=== PATIENT | female | born 1985 ===

== ENCOUNTER 2017-12-25 14:12 | Emergency (ER) | payer OTHER ==
[~2017-12-25] VITALS: Ht 157.5 cm; Wt 49.9 kg
[~2017-12-25 14:12] MED LIST: IBUP-1773 PO; Ibuprofen PO; PREN1TAB19 PO
--- OUTSIDE RECORDS SUMMARY | 2017-12-25 14:20 | XMS REPORT ---
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 pylori infection A04.8 Active 189513536 Problem Dyspepsia R10.13 Active 275820095 ALLERGIES No Information ENCOUNTERS Encounter Location Date Diagnosis [facility] [id number] [place] [address] 14369- 9988 Dec, [facility] [id number] [place] [address] 39059- 1028 Dec, Miscarriage O03.9 [facility] WALK IN [facility] [id number] [place] [address] 44706 -8461 Nov, Threatened in first trimester O20.0 ; Missed period N92.6 ; Abdominal pain R10.9 and Miscarriage O03.9 [facility] [id number] [place] [address] 22804- 5253 Aug, Well woman exam Z01.419 ; Screening examination for sexually transmitted disease Z11.3 and Mittelschmerz N94.0 [facility] [id number] [place] [address] 24464- 6676 Sep, Dental examination Z01.20 [place] [id number] [place] [address] 81205- 6039 08 Aug, 2017 General medical exam Z00.00 ; Anxiety F41.9 ; Dyspepsia R10.13 and H. pylori infection A04.8 [facility] [id number] [place] [address] 67099- 9884 Sep, [facility] [id number] [place] [address] 57170- 3666 Sep, General medical exam Z00.00 ; Anxiety F41.9 ; Dyspepsia R10.13 and H. pylori infection A04.8 [place] [id number] [place] [address] 04069- 9471 Aug, [place] [address] 81511- 5053 Aug, Anxiety state, unspecified F41.1 [place] [address] 80896- 9083 Apr, Routine gynecological examination Z01.419 [facility] [address] [id number] June, Dental examination Z01.20 [place] [address] 54822- 6883 Apr, Low grade intrepith lesion cyto smr crvx (LGSIL) R87.612 [place] [address] 33232- 1751 Apr, Well woman exam Z01.419 ; Encounter for screening for malignant neoplasm of cervix Z12.4 ; Routine screening for STI (sexually transmitted infection) Z11.3 ; Patient is a currently breast-feeding mother Z39.1 and Bartholin cyst N75.0 [place] [address] 36521- 8833 Feb, Routine follow-up Z39.2 ; Constipation, unspecified K59.00 and Encounter for counseling regarding contraception Z30.9 [place] [id number] [place] [address] 43945- 9872 Jan, Normal , third trimester Z34.93 ; GBS (group B Streptococcus carrier), +RV culture, currently O99.820 and 38 weeks gestation of Z3A.38 [place] [id number] [place] [address] 04342- 0022 Dec, Normal , third trimester Z34.93 ; GBS (group B Streptococcus carrier), +RV culture, currently O99.820 and 37 weeks gestation of Z3A.37 [place] [address] 44265- 3775 10 Dec, 2014 with 35 completed weeks gestation Z3A.35 ; Normal in third trimester Z34.93 ; Encounter for immunization Z23 and Bartholin cyst N75.0 [place] [address] 14341- 3040 Oct, [address] 05181- 9904 Oct, Screening for diabetes mellitus V77.1 ; Influenza vaccine administered V04.81 ; Screening, iron deficiency anemia V78.0 and , normal subsequent V22.[address] 19179- 8550 Sep, , normal subsequent V22.1 [place] [id number] [place] [address] 19420- 5360 Aug, , normal subsequent V22.1 and Screen for STD ( sexually transmitted disease) V74.5 [place] [id number] [place] [address] 35696- 2003 Jul, test positive V72.42 ; , normal subsequent V22.1 and Screen for STD (sexually transmitted disease) V74.5 [place] [id number] [place] [address] 94263- 9050 Jul, test positive V72.42 [facility] [id number] [place] [address] [id number] 08 Jul, 2014 Dental examination V72.2 [facility] [address] [id number] [id number] June, Dental examination V72.2 [facility] [address] [id number] [place] [address]- 9012 14 May, 2014 [facility] [address] [id number] [address]- 1322 May, [facility] [address] [id number][place] [address]- 3709 24 Dec, 2013 [facility] [address] [id number] [place] [address]- 9543 24 Dec, 2013 [facility] [address] [id number][place] [address]- 4688 Dec, [facility] [address] [id number], [place] [address]- 4405 Dec, [facility] [address] [id number][place] [address]- 7844 2013 [facility] [address] [id number] [address]- 4745 2013 [facility] [address] [id number], [place] [address]- 4141 18 Oct, 2013 [facility] [address] [id number][place] [address]- 8804 18 Oct, 2013 [facility] [place] [facility] [address] [id number], [place] [address]- 9184 17 Oct, 2013 [facility] [place] [facility] [address] [id number][place] [address]- 1669 17 Oct, 2013 [facility] [place] [facility] [address] [id number][place] [address]- 4946 10 Oct, 2013 [facility] [place] [facility] [address] [id number], [place] [address]- 7198 10 Oct, 2013 [facility] [address] [id number] [place] [address]- 9699 09 Oct, 2013 [facility] [place] [facility] [address] [id number] [place] [address]- 3382 05 Oct, 2013 [facility] [place] [facility] [address] [id number] [place] [address]- 8996 Oct, [facility] [place] [facility] [address] [id number] [place] [address]- 6056 Oct, [facility] [place] [facility] [address] [id number] [place] [address]- 5580 Sep, [facility] [place] [facility] [address] [id number] [place] [address]- 3994 Sep, [facility] [place] [facility] [address] [id number] [place] [address]- 6226 Sep, [facility] [place] [facility] [address] [id number] [place] [address]- 3576 Sep, [facility] [place] [facility] [address] [id number] [place] [address]- 5657 Aug, [facility] [place] [facility] [address] [id number] [place] [address]- 7729 Aug, [facility] [place] [facility] [address] [id number] [place] [address]- 2815 Aug, [facility] [place] [facility] [address] [id number] [place] [address]- 6127 Aug, [facility] [place] [facility] [address] [id number] [place] [address]- 6062 Aug, [facility] [place] [facility] [address] [id number] [place] [address]- 3723 Aug, [facility] [place] [facility] [address] [id number] [place] [address]- 0103 Jul, [facility] [place] [facility] [address] [id number] [place] [address]- 6685 Jul, [facility] [place] [facility] [address] [id number] [place] [address]- 2558 Jul, [facility] [place] [facility] [address] [id number] [place] [address]- 2705 Jul, [facility] [place] [facility] [address] [id number] [place] [address]- 1626 Jul, [facility] [place] [facility] [address] [id number] [place] [address]- 7566 Jul, [facility] [place] [facility] [address] [id number] [place] [address]- 7558 Jul, [facility] [place] [facility] [address] [id number] [place] [address]- 8842 Jul, [facility] [place] [facility] [address] [id number] [place] [address]- 6197 June, [facility] [place] [facility] [address] [id number] [place] [address]- 5124 June, [facility] [place] [facility] [address] [id number] [place] [address]- 5297 June, [facility] [place] [facility] [address] [id number] [place] [address]- 0155 June, [facility] [place] [facility] [address] [id number] [place] [address]- 1220 June, [facility] [place] [facility] [address] [id number] [place] [address]- 8146 May, [facility] [place] [facility] [address] [id number] [place] [address]- 7662 May, [facility] [place] [facility] [address] [id number] [place] [address]- 8693 May, [facility] [place] [facility] [address] [id number] [place] [address]- 1700 May, [facility] [place] [facility] [address] [id number] [place] [address]- 7216 May, [facility] [place] [facility] [address] [id number] [place] [address]- 3464 15 May, 2013 [facility] [place] [facility] [address] [id number] [place] [address] May, [facility] [place] [facility] [address] [id number] [place] [address]- 0912 May, [facility] [place] [facility] [address] [id number] [place] [id number] May, [facility] [place] [facility] [address] [id number] [place] [address]- 5793 May, [facility] [place] [facility] [address] [id number] [place] [address]- 8389 May, [facility] [place] [facility] [address] [id number] [place] [address]- 1663 May, [facility] [place] [facility] [address] [id number] [place] [address]- 2615 May, [facility] [place] [facility] [address] [id number] [place] [address]- 9805 May, [facility] [place] [facility] [address] [id number] [place] [address]- 6004 May, [facility] [place] [facility] [address] [id number][place] [address]- 9560 May, [facility] [place] [facility] [address] [id number], [place] [address]- 7001 Apr, [facility] [place] [facility] [address] [id number] [place] [address]- 5111 Apr, [facility] [place] [facility] [address] [id number] [place] [address] 8923 Apr, [facility] [place] [facility] [address] [id number] [place] 3826 Apr, [facility] [place] [facility] [address] [facility] [id number] [place] [address]- 2477 Apr, [facility] [address] [facility] [id number][place] [address]- 4298 Apr, [facility] [address] [facility] [id number][place] [address]- 9636 Mar, [facility] [address] [facility] [id number], [place] [address]- 1898 Mar, IMMUNIZATIONS No Known Immunizations SOCIAL HISTORY Never Assessed REASON FOR VISIT Lab (walk-in) PLAN OF CARE Activity Details Pending Test HCG, QUANTITATIVE VITAL SIGNS MEDICATIONS Unknown Medications RESULTS No Results PROCEDURES Procedure Date Ordered Result Body Site CHORIONIC GONADOTROPIN TEST Dec 23, 2017 INSTRUCTIONS MEDICATIONS ADMINISTERED No Known Medications MEDICAL (GENERAL) HISTORY Type Description Date Surgical History No know Surgical history
--- OUTSIDE RECORDS SUMMARY | 2017-12-25 14:20 | XMS REPORT ---
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 pylori infection A04.8 Active 784498880 Problem Dyspepsia R10.13 Active 807769843 ALLERGIES No Known Allergies ENCOUNTERS Encounter Location Date Diagnosis [facility] [id number] [place] [address] 42279- 0601 Dec, [facility] WALK IN [facility] [id number] [place] [address] 23165 -6951 Nov, Threatened in first trimester O20.0 ; Missed period N92.6 ; Abdominal pain R10.9 and Miscarriage O03.9 [place] [id number] [place] [address] 66364- 7386 Aug, Well woman exam Z01.419 ; Screening examination for sexually transmitted disease Z11.3 and Mittelschmerz N94.0 [place] [id number] [place] [address] 73622- 9645 Sep, Dental examination Z01.20 [place] [id number] [place] [address] 14162- 6392 Sep, General medical exam Z00.00 ; Anxiety F41.9 ; Dyspepsia R10.13 and H. pylori infection A04.8 [place] [id number] [place] [address] 21676- 2964 Sep, [place] [id number] [place] [address] 23120- 3124 Sep, General medical exam Z00.00 ; Anxiety F41.9 ; Dyspepsia R10.13 and H. pylori infection A04.8 [address] [id number] [place] [address] 80292- 6747 Aug, [place] [id number] [place] [address] 67381- 8367 Aug, Anxiety state, unspecified F41.[address] 41830- 9398 Apr, Routine gynecological examination Z01.419 [facility] [address] [id number] June, Dental examination Z01.20 [place] [id number] [place] [address] 58876- 7931 Apr, Low grade intrepith lesion cyto smr crvx (LGSIL) R87.612 [place] [id number] [place] [address] 03017- 3936 Apr, Well woman exam Z01.419 ; Encounter for screening for malignant neoplasm of cervix Z12.4 ; Routine screening for STI (sexually transmitted infection) Z11.3 ; Patient is a currently breast-feeding mother Z39.1 and Bartholin cyst N75.0 [place] [id number] [place] [address] 11849- 4324 Feb, Routine follow-up Z39.2 ; Constipation, unspecified K59.00 and Encounter for counseling regarding contraception Z30.9 [place] [id number] [place] [address] 69137- 7407 Jan, Normal , third trimester Z34.93 ; GBS (group B Streptococcus carrier), +RV culture, currently O99.820 and 38 weeks gestation of Z3A.38 [place] [address] [place] [address] 49218- 9795 Dec, Normal , third trimester Z34.93 ; GBS (group B Streptococcus carrier), +RV culture, currently O99.820 and 37 weeks gestation of Z3A.37 [place] [id number] [place] [address] 27735- 8673 10 Dec, 2014 with 35 completed weeks gestation Z3A.35 ; Normal in third trimester Z34.93 ; Encounter for immunization Z23 and Bartholin cyst N75.0 [place] [id number] [place] [address] 89943- 2493 Oct, [place] [id number] [place] [address] 47700- 4216 Oct, Screening for diabetes mellitus V77.1 ; Influenza vaccine administered V04.81 ; Screening, iron deficiency anemia V78.0 and , normal subsequent V22.1 [place] [id number] [place] [address] 78237- 5273 Sep, , normal subsequent V22.1 [place] [id number] [place] [address] 62710- 3492 Aug, , normal subsequent V22.1 and Screen for STD ( sexually transmitted disease) V74.5 [place] [id number] [place] [address] 35576- 2579 Jul, test positive V72.42 ; , normal subsequent V22.1 and Screen for STD (sexually transmitted disease) V74.5 [place] [address] [place] [address] 10303- 4639 Jul, test positive V72.42 [facility] [id number] [place] [address] [id number] Jul, Dental examination V72.2 [facility] [id number] [place] [address] [id number] June, Dental examination V72.2 [facility] [place] [facility] [address] [id number] [place] [address]- 1489 14 May, 2014 [facility] [place] [facility] [address] [id number] [place] [address]- 0525 13 May, 2014 [facility] [place] [facility] [address] [id number] [place] [address]- 8740 24 Dec, 2013 [facility] [place] [facility] [address] [id number] [place] [address]- 3405 24 Dec, 2013 [facility] [place] [facility] [address] [id number] [place] [address]- 8477 Dec, [facility] [place] [facility] [address] [id number] [place] [address]- 9941 Dec, [facility] [place] [facility] [address] [id number] [place] [address]- 8681 2013 [facility] [place] [facility] [address] [id number] [place] [address]- 0711 2013 [facility] [place] [facility] [address] [id number] [place] [address]- 8797 18 Oct, 2013 [facility] [place] [facility] [address] [id number] [place] [address]- 1855 18 Oct, 2013 [facility] [place] [facility] [address] [id number] [place] [address]- 7593 17 Oct, 2013 [facility] [place] [facility] [address] [id number], [place] [address]- 6866 17 Oct, 2013 [facility] [place] [facility] [address] [id number] [place] [address]- 2547 10 Oct, 2013 [facility] [place] [facility] [address] [id number] [place] [address]- 2545 10 Oct, 2013 [facility] [place] [facility] [address] [id number], [place] [address]- 5176 09 Oct, 2013 [facility] [place] [facility] [address] [id number], [place] [address]- 4064 Oct, [facility] [place] [facility] [address] [id number] [place] [address]- 9763 Oct, [facility] [place] [facility] [address] [id number] [place] 2479 Oct, [facility] [place] [facility] [address] [id number] [place] [address]- 9066 Sep, [facility] [place] [facility] [address] [id number] [place] [address]- 0632 Sep, [facility] [place] [facility] [address] [id number] [place] [address]- 2599 Sep, [facility] [place] [facility] [address] [id number] [place] [address]- 3303 Sep, [facility] [place] [facility] [address] [id number] [place] [address]- 9590 Aug, [facility] [place] [facility] [address] [id number] [place] [address]- 2131 Aug, [facility] [place] [facility] [address] [id number] [place] [address]- 6206 Aug, [facility] [place] [facility] [address] [id number] [place] [address]- 9340 Aug, [facility] [place] [facility] [address] [id number] [place] [address]- 3993 Aug, [facility] [place] [facility] [address] [id number] [place] [address]- 0255 Aug, [facility] [place] [facility] [address] [id number] [place] [address]- 9512 Jul, [facility] [place] [facility] [address] [id number] [place] [address]- 7681 Jul, [facility] [place] [facility] [address] [id number] [place] [address]- 1248 Jul, [facility] [place] [facility] [address] [id number] [place] [address]- 8048 Jul, [facility] [place] [facility] [address] [id number] [place] [address]- 2465 Jul, [facility] [place] [facility] [address] [id number] [place] [address]- 1479 Jul, [facility] [place] [facility] [address] [id number] [place] [address]- 8845 Jul, [facility] [place] [facility] [address] [id number] [place] [address]- 0956 Jul, [facility] [place] [facility] [address] [id number] [place] [address]- 8610 June, [facility] [place] [facility] [address] [id number] [place] [address]- 5201 June, [facility] [place] [facility] [address] [id number] [place] [address]- 2182 June, [facility] [place] [facility] [address] [id number] [place] [address]- 0220 June, [facility] [place] [facility] [address] [id number] [place] [address]- 4433 June, [facility] [place] [facility] [address] [id number] [place] [address] May, [facility] [place] [facility] [address] [id number] [place] [address] May, [facility] [place] [facility] [address] [id number] [place] [address] May, [facility] [place] [facility] [address] [id number] [place] [address] May, [facility] [place] [facility] [address] [id number] [place] [address] May, [facility] [place] [facility] [address] [id number] [place] [address] May, [facility] [place] [facility] [address] [id number] [place] [id number] May, [facility] [place] [facility] [address] [id number] [place] [address] May, [facility] [place] [facility] [address] [facility] [id number] [place] [id number] May, [facility] [place] [facility] [address] [id number] [place] [address] May, [facility] [place] [facility] [address] [id number] [place] [address] May, [facility] [place] [facility] [address] [id number] [place] [address] May, [facility] [place] [facility] [address] [facility] [id number] [place] [address] May, [facility] [place] [facility] [address] [id number] [place] [address] May, [facility] [place] [facility] [address] [id number] [place] [address] May, [facility] [place] [facility] [address] [id number] [place] [address] May, [facility] [place] [facility] [address] [id number] [place] [address] Apr, [facility] [place] [facility] [address] [id number], [place] [address] Apr, [facility] [place] [facility] [address] [id number] [place] [address] Apr, [facility] [place] [facility] [address] [id number] [place] [address] Apr, [facility] [place] [facility] [address] [id number], [place] [address] Apr, [facility] [place] [facility] [address] [id number], [place] [address] Apr, [facility] [address] [facility] [id number] [place] [address] Mar, [facility] [address] [facility] [id number], [place] [address] Mar, IMMUNIZATIONS No Known Immunizations SOCIAL HISTORY Never Assessed REASON FOR VISIT pt reports she is et having vaginal spotting that she is using a pad for. denies any clots. reports lower abdominal cramping for the past 2 months. denies pain with intercourse. kbullardrn, LMP was 10/18/2017, G5, T4, P0, A0, L4., EDC...07/27/2018 PLAN OF CARE Activity Details Follow Up 1-2 weeks Reason:SAB VITAL SIGNS Height 62 in 2017-12-20 Weight 110.2 lbs 2017-12-20 Temperature 99.7 degrees Fahrenheit 2017-12-20 Heart Rate 74 bpm 2017-12-20 Respiratory Rate 20 2017-12-20 BMI 20.15 kg/m2 2017-12-20 Blood pressure systolic 110 mmHg 2017-12-20 Blood pressure diastolic 68 mmHg 2017-12-20 MEDICATIONS Medication Instructions Dosage Frequency Start Date End Date Duration Status 28-0.8 MG Orally Once a day 1 tablet 24h 30 day(s) Active RESULTS No Results PROCEDURES Procedure Date Ordered Result Body Site URINE TEST Dec 20, 2017 URINALYSIS, AUTO, W/O SCOPE Dec 20, 2017 CHORIONIC GONADOTROPIN TEST Dec 20, 2017 URINE CULTURE/COLONY COUNT Dec 20, 2017 VENIPUNCT, ROUTINE* Dec 20, 2017 INSTRUCTIONS MEDICATIONS ADMINISTERED No Known Medications MEDICAL (GENERAL) HISTORY Type Description Date Surgical History No know Surgical history
--- OUTSIDE RECORDS SUMMARY | 2017-12-25 14:21 | XMS REPORT ---
Author Author KENY OH Organization [facility] Address [address] [place] [address] Care Team Providers Care Housing Project Manager Name Role Phone KENY OH Unavailable PROBLEMS Type Condition ICD9-CM Code QIZ20-DO Code Onset Dates Condition Status SNOMED Code Problem Anxiety F41.9 Active 07827867 Problem H. pylori infection A04.8 Active 453291025 Problem Bartholin cyst N75.0 Active 79943506 Problem Patient is a currently breast-feeding mother Z39.1 Active 372348734 Problem Dyspepsia R10.13 Active 416232170 Problem Anxiety state, unspecified F41.1 Active 593891654 ALLERGIES No Information ENCOUNTERS Encounter Location Date Diagnosis [place] [address] [address] Sep, Dental examination Z01.[address] [address]- [address] Sep, General medical exam Z00.00 ; Anxiety F41.9 ; Dyspepsia R10.13 and H. pylori infection A04.8 [place] [address] [place] [id number] [place] [address] 68390- 2313 Sep, [place] [address] [place] [id number] [place] [address] 79422- 1663 Sep, General medical exam Z00.00 ; Anxiety F41.9 ; Dyspepsia R10.13 and H. pylori infection A04.8 [place] [address] [place] [id number] [place] [address] 74580- 2095 Aug, [place] [address] [place] [id number] [place] [address] 20928- 1966 Aug, Anxiety state, unspecified F41.1 [place] [address] [place] [address] 75142- 3148 Apr, Routine gynecological examination Z01.419 [facility] [address] [place] [address] [id number] June, Dental examination Z01.20 [place] [address] [place] [id number] [place] [address] 76814- 0960 Apr, Low grade intrepith lesion cyto smr crvx (LGSIL) R87.612 [place] [address] [place] [id number] [place] [address] 15959- 3194 Apr, Well woman exam Z01.419 ; Encounter for screening for malignant neoplasm of cervix Z12.4 ; Routine screening for STI (sexually transmitted infection) Z11.3 ; Patient is a currently breast-feeding mother Z39.1 and Bartholin cyst N75.0 [place] [address] [place] [address] 70727- 1889 Feb, Routine follow-up Z39.2 ; Constipation, unspecified K59.00 and Encounter for counseling regarding contraception Z30.9 [place] [address] [place] [id number] [place] [address] 14181- 9759 Jan, Normal , third trimester Z34.93 ; GBS (group B Streptococcus carrier), +RV culture, currently O99.820 and 38 weeks gestation of Z3A.38 [place] [address] [place] [address] 13581- 5855 24 Dec, 2014 Normal , third trimester Z34.93 ; GBS (group B Streptococcus carrier), +RV culture, currently O99.820 and 37 weeks gestation of Z3A.37 [place] [address] [place] [address] 61707- 7881 Dec, with 35 completed weeks gestation Z3A.35 ; Normal in third trimester Z34.93 ; Encounter for immunization Z23 and Bartholin cyst N75.0 [place] [address] [place] [id number] [place] [address] [place] [id number] 5446 Oct, [facility] [address] [address] 1[address] Oct, Screening for diabetes mellitus V77.1 ; Influenza vaccine administered V04.81 ; Screening, iron deficiency anemia V78.0 and , normal subsequent V22.1 [facility] [address] [place] [address] 572538- 1667 Sep, , normal subsequent V22.1 [facility] [address] [place] [address] 18711- 1372 Aug, , normal subsequent V22.1 and Screen for STD ( sexually transmitted disease) V74.5 [facility] [address] [place] [address] 05864- 6028 Jul, test positive V72.42 ; , normal subsequent V22.1 and Screen for STD (sexually transmitted disease) V74.5 [facility] [address] [address]- 8502 Jul, test positive V72.42 [facility] [address] [place] [id number] [place] [address] [id number] Jul, Dental examination V72.2 [facility] [address] [place] [id number] [place] [address] [id number] June, Dental examination V72.2 [facility] [address] [address]- 3396 May, [facility] [address] [address]- 6326 May, [facility] [address] [place] [id number] [place] [address] 970054- 2066 Dec, [facility] [address] [address]- 5627 Dec, [facility] [address] [place] [address] 47841- 0367 10 Dec, 2013 [facility] [place] [facility] [address] [id number] [place] [address]- 2455 10 Dec, 2013 [facility] [place] [facility] [address] [id number] [place] [address]- 2089 2013 [facility] [place] [facility] [address] [id number] [place] [address]- 1098 2013 [facility] [place] [facility] [address] [id number] [place] [address]- 0067 18 Oct, 2013 [facility] [place] [facility] [address] [id number] [place] [address]- 3293 18 Oct, 2013 [facility] [place] [facility] [address] [id number] [place] [address]- 9920 17 Oct, 2013 [facility] [place] [facility] [address] [id number] [place] [address]- 2074 17 Oct, 2013 [facility] [place] [facility] [address] [id number] [place] [address]- 0052 10 Oct, 2013 [facility] [place] [facility] [address] [id number] [place] [address]- 2114 10 Oct, 2013 [facility] [place] [facility] [address] [id number] [place] [address]- 2323 09 Oct, 2013 [facility] [place] [facility] [address] [id number] [address]- 3503 05 Sep, 2013 [facility] [place] [facility] [address] [id number] [address]- 0085 03 Sep, 2013 [facility] [place] [facility] [address] [id number] [place] [address]- 8346 03 Oct, 2013 [facility] [place] [facility] [address] [id number] [place] [address]- 4412 18 Sep, 2013 [facility] [place] [facility] [address] [id number] [place] [address]- 0720 Sep, [facility] [place] [facility] [address] [id number] [place] [address]- 9898 Sep, [facility] [place] [facility] [address] [id number] [place] [address]- 1844 Sep, [facility] [place] [facility] [address] [id number] [place] [address]- 0238 Aug, [facility] [place] [facility] [address] [id number] [place] [address]- 7795 Aug, [facility] [place] [facility] [address] [id number] [place] [address]- 8738 Aug, [facility] [place] [facility] [address] [id number] [place] [address]- 2415 Aug, [facility] [place] [facility] [address] [id number] [place] [address]- 4646 Aug, [facility] [place] [facility] [address] [id number] [place] [address]- 7150 Aug, [facility] [place] [facility] [address] [id number] [place] [address]- 9868 Jul, [facility] [place] [facility] [address] [id number] [place] [address]- 2984 Jul, [facility] [place] [facility] [address] [id number] [place] [address]- 8371 Jul, [facility] [place] [facility] [address] [id number] [place] [address]- 9060 Jul, [facility] [place] [facility] [address] [id number] [place] [address]- 9907 Jul, [facility] [place] [facility] [address] [id number] [place] [address]- 2260 Jul, [facility] [place] [facility] [address] [id number] [place] [address]- 3542 Jul, [facility] [place] [facility] [address] [id number] [place] [address]- 3536 Jul, [facility] [place] [facility] [address] [id number] [place] [address]- 4304 June, [facility] [place] [facility] [address] [id number] [place] 3402 June, [facility] [place] [facility] [address] [id number] [place] [address]- 4389 June, [facility] [place] [facility] [address] [id number] [place] [address]- 9416 June, [facility] [place] [facility] [address] [id number] [place] [address]- 4696 June, [facility] [place] [facility] [address] [id number] [place] [address]- 1322 May, [facility] [place] [facility] [address] [id number] [place] [address]- 7364 May, [facility] [place] [facility] [address] [id number] [place] [address]- 6449 May, [facility] [place] [facility] [address] [id number] [place] [address]- 5950 May, [facility] [place] [facility] [address] [id number] [place] [address]- 7639 May, [facility] [place] [facility] [address] [id number] [place] [address]- 7498 15 May, 2013 [facility] [place] [facility] [address] [id number] [place] [address] May, [facility] [place] [facility] [address] [id number] [place] [address]- 9122 May, [facility] [place] [facility] [address] [id number] [place] [address] May, [facility] [place] [facility] [address] [id number] [place] [address]- 7446 May, [facility] [place] [facility] [address] [id number] [place] [address]- 1568 May, [facility] [address] [place] [id number] [address]- 4971 May, [facility] [address] [address]- 5021 May, [facility] [address] [place] [id number] [address]- 6298 May, [facility] [address] 8161 May, [facility] [address] [place] [id number] [address]- 6031 May, [facility] [address] [address]- 7898 Apr, [facility] [address] [address]- 8250 Apr, [facility] [address] [address]- 4245 Apr, [facility] [address] [place] [id number] [address]- 0914 Apr, [facility] [address] [address]- 9943 Apr, [facility] [address] [place] [id number] [address]- 7425 Apr, [facility] [address] [place] [id number] [address]- 8398 Mar, [facility] [address] [place] [id number] [address]- 4460 Mar, IMMUNIZATIONS No Known Immunizations SOCIAL HISTORY Never Assessed REASON FOR VISIT Lab (walk-in) PLAN OF CARE VITAL SIGNS MEDICATIONS No Known Medications RESULTS Name Result Date Reference Range TSH 2016-09-29 TSH 1.880 0.450-4.500 CBC 2016-09-29 WBC 7.1 3.4-10.8 RBC 4.17 3.77-5.28 Hemoglobin 12.6 11.1-15.9 Hematocrit 38.2 34.0-46.6 MCV 92 79-97 MCH 30.2 26.6-33.0 MCHC 33.0 31.5-35.7 RDW 13.2 12.3-15.4 Platelets 308 150-379 Neutrophils 50 Lymphs 41 Monocytes 7 Eos 1 Basos 1 Neutrophils (Absolute) 3.6 1.4-7.0 Lymphs (Absolute) 2.9 0.7-3.1 Monocytes(Absolute) 0.5 0.1-0.9 Eos (Absolute) 0.1 0.0-0.4 Baso (Absolute) 0.0 0.0-0.2 Immature Granulocytes 0 Immature Grans (Abs) 0.0 0.0-0.1 LIPID PANEL 2016-09-29 Cholesterol, Total 126 100-199 Triglycerides 141 0-149 HDL Cholesterol 36 >39 VLDL Cholesterol Javier 28 5-40 LDL Cholesterol Calc 62 0-99 Comment: CMP 2016-09-29 Glucose, Serum 79 65-99 BUN 9 6-20 Creatinine, Serum 0.55 0.57-1.00 eGFR If NonAfricn Am 128 >59 eGFR If Africn Am 148 >59 BUN/Creatinine Ratio 16 9-23 Sodium, Serum 140 134-144 Potassium, Serum 4.0 3.5-5.2 Chloride, Serum 102 96-106 Carbon Dioxide, Total 22 18-29 Calcium, Serum 9.0 8.7-10.2 Protein, Total, Serum 6.4 6.0-8.5 Albumin, Serum 3.9 3.5-5.5 Globulin, Total 2.5 1.5-4.5 A/G Ratio 1.6 1.2-2.2 Bilirubin, Total 0.6 0.0-1.2 Alkaline Phosphatase, S 72 39-117 AST (SGOT) 20 0-40 ALT (SGPT) 17 0-32 PROCEDURES Procedure Date Ordered Result Body Site COMPREHEN METABOLIC PANEL Sep 29, 2016 COMPLETE CBC W/AUTO DIFF WBC Sep 29, 2016 LIPID PANEL Sep 29, 2016 ASSAY THYROID STIM HORMONE Sep 29, 2016 VENIPUNCT, ROUTINE* Sep 29, 2016 INSTRUCTIONS MEDICATIONS ADMINISTERED No Known Medications
--- OUTSIDE RECORDS SUMMARY | 2017-12-25 14:21 | XMS REPORT ---
Author Author TINO REYES Organization [facility] Address [address] [place] [address] Care Team Providers Care Vp Integration Name Role Phone TINO REYES Unavailable PROBLEMS Type Condition ICD9-CM Code BLF14-HC Code Onset Dates Condition Status SNOMED Code Problem Anxiety F41.9 Active 71146603 Problem H. pylori infection A04.8 Active 571314750 Problem Bartholin cyst N75.0 Active 27943348 Problem Patient is a currently breast-feeding mother Z39.1 Active 944464669 Problem Dyspepsia R10.13 Active 282607592 Problem Anxiety state, unspecified F41.1 Active 031070657 ALLERGIES No Information ENCOUNTERS Encounter Location Date Diagnosis [place] [address] [place] [id number] [place] [address] 90663- 4036 Sep, Dental examination Z01.20 [place] [address] [address]- 5984 Sep, General medical exam Z00.00 ; Anxiety F41.9 ; Dyspepsia R10.13 and H. pylori infection A04.8 [place] [address] [place] [address] 87150- 5926 Sep, [place] [address] [place] [id number] [place] [address] 28876- 3269 Sep, General medical exam Z00.00 ; Anxiety F41.9 ; Dyspepsia R10.13 and H. pylori infection A04.8 [place] [address] [place] [id number] [place] [address] 04848- 8861 Aug, [place] [address] [place] [id number] [place] [address] 06849- 7222 Aug, Anxiety state, unspecified F41.1 [place] [address] [place] [address] 66094- 5331 Apr, Routine gynecological examination Z01.419 [facility] [address] [place] [address] [id number] June, Dental examination Z01.20 [place] [address] [place] [id number] [place] [address] 99520- 3511 Apr, Low grade intrepith lesion cyto smr crvx (LGSIL) R87.612 [place] [address] [place] [id number] [place] [address] 00543- 6143 Apr, Well woman exam Z01.419 ; Encounter for screening for malignant neoplasm of cervix Z12.4 ; Routine screening for STI (sexually transmitted infection) Z11.3 ; Patient is a currently breast-feeding mother Z39.1 and Bartholin cyst N75.0 [place] [address] [place] [id number] [place] [address] 62572- 4585 Feb, Routine follow-up Z39.2 ; Constipation, unspecified K59.00 and Encounter for counseling regarding contraception Z30.9 [place] [address] [place] [id number] [place] [address] 13967- 4998 Jan, Normal , third trimester Z34.93 ; GBS (group B Streptococcus carrier), +RV culture, currently O99.820 and 38 weeks gestation of Z3A.38 [place] [address] [place] [address] 40070- 1281 24 Dec, 2014 Normal , third trimester Z34.93 ; GBS (group B Streptococcus carrier), +RV culture, currently O99.820 and 37 weeks gestation of Z3A.37 [place] [address] [place] [id number] [place] [address] 52724- 4646 10 Dec, 2014 with 35 completed weeks gestation Z3A.35 ; Normal in third trimester Z34.93 ; Encounter for immunization Z23 and Bartholin cyst N75.0 [place] [address] [place] [id number] [place] [address] 62519- 7386 Oct, [facility] [address] [place] [address] 57919- 7688 Oct, Screening for diabetes mellitus V77.1 ; Influenza vaccine administered V04.81 ; Screening, iron deficiency anemia V78.0 and , normal subsequent V22.1 [facility] [address] [place] [address] 87416- 9285 Sep, , normal subsequent V22.1 [facility] [address] [place] [id number] [place] [address] 54155- 0682 Aug, , normal subsequent V22.1 and Screen for STD ( sexually transmitted disease) V74.5 [facility] [address] [id number] [place] [address] 47853- 3906 Jul, test positive V72.42 ; , normal subsequent V22.1 and Screen for STD (sexually transmitted disease) V74.5 [facility] [address] [place] [address] 43555- 0166 Jul, test positive V72.42 [facility] [id number] [place] [address] [id number] Jul, Dental examination V72.2 [facility] [address] [id number] [place] [address] [id number] June, Dental examination V72.2 [facility] [address] [place] [address] 18550- 5726 May, [facility] [address] [place] [address] 51730- 0106 May, [facility] [address] [id number] [place] [address] 791233- 7986 Dec, [facility] [id number] [place] [address] 19821242- 9426 Dec, [facility] [address] [place] [id number] [place] [address] 79103- 9882 Dec, [facility] [place] [facility] [address] [id number] [place] [address]- 5596 10 Dec, 2013 [facility] [place] [facility] [address] [id number] [place] [address]- 9850 2013 [facility] [place] [facility] [address] [id number] [place] [address]- 7823 2013 [facility] [place] [facility] [address] [id number] [place] [address]- 9867 18 Oct, 2013 [facility] [place] [facility] [address] [id number] [place] [address]- 8058 18 Oct, 2013 [facility] [place] [facility] [address] [id number] [place] [address]- 6533 17 Oct, 2013 [facility] [place] [facility] [address] [id number] [place] [address]- 5415 17 Oct, 2013 [facility] [place] [facility] [address] [id number] [place] [address]- 5635 10 Oct, 2013 [facility] [place] [facility] [address] [id number] [place] [address]- 6126 10 Oct, 2013 [facility] [place] [facility] [address] [id number] [place] [address]- 2251 09 Oct, 2013 [facility] [place] [facility] [address] [id number] [place] [address]- 4710 05 Oct, 2013 [facility] [place] [facility] [address] [id number], [place] [address]- 0212 03 Oct, 2013 [facility] [place] [facility] [address] [id number] [place] [address]- 1071 Oct, 2013 [facility] [place] [facility] [address] [id number] [place] [address]- 1754 Sep, [facility] [place] [facility] [address] [id number], [place] [address]- 8372 18 Sep, 2013 [facility] [place] [facility] [address] [id number], [place] [address]- 4986 Sep, [facility] [place] [facility] [address] [id number] [place] [address]- 5948 Sep, [facility] [place] [facility] [address] [id number] [place] [address]- 6021 Aug, [facility] [place] [facility] [address] [id number] [place] [address]- 2323 Aug, [facility] [place] [facility] [address] [id number] [place] [address]- 4135 Aug, [facility] [place] [facility] [address] [id number] [place] [address]- 7209 Aug, [facility] [place] [facility] [address] [id number] [place] [address]- 0502 Aug, [facility] [place] [facility] [address] [id number] [place] [address]- 6006 Aug, [facility] [place] [facility] [address] [id number] [place] [address]- 1126 Jul, [facility] [place] [facility] [address] [id number] [place] [address]- 2893 Jul, [facility] [place] [facility] [address] [id number] [place] [address]- 8237 Jul, [facility] [place] [facility] [address] [id number] [place] [address]- 2636 Jul, [facility] [place] [facility] [address] [id number] [place] [address]- 6822 Jul, [facility] [place] [facility] [address] [id number] [place] [address]- 8719 Jul, [facility] [place] [facility] [address] [id number] [place] [address]- 0349 Jul, [facility] [place] [facility] [address] [id number] [place] [address]- 7728 Jul, [facility] [place] [facility] [address] [id number] [place] [address]- 9639 June, [facility] [place] [facility] [address] [id number] [place] [address] June, [facility] [place] [facility] [address] [id number] [place] [address] June, [facility] [place] [facility] [address] [id number] [place] [address] June, [facility] [place] [facility] [address] [id number] [place] [address] June, [facility] [place] [facility] [address] [id number] [place] [address] May, [facility] [place] [facility] [address] [id number] [place] [address] May, [facility] [place] [facility] [address] [id number] [place] [address] May, [facility] [place] [facility] [address] [id number] [place] [address] May, [facility] [place] [facility] [address] [id number] [place] [address] May, [facility] [place] [facility] [address] [id number] [place] [address] 15 May, 2013 [facility] [place] [facility] [address] [id number] [place] [id number] May, [facility] [place] [facility] [address] [id number] [place] [address] May, [facility] [place] [facility] [address] [id number] [place] [id number] May, [facility] [place] [facility] [address] [id number] [place] [address] May, [facility] [place] [facility] [address] [id number] [place] [address] May, [facility] [address] [id number] [address] May, [facility] [id number], [place] [address] May, [facility] [address] [id number], [place] [address] May, [facility] [id number], [place] [address] May, [facility] [address] [facility] [id number], [place] [address] May, [facility] [id number], [place] [address] Apr, [facility] [id number], [place] [address] Apr, [facility] [id number], [place] [address] Apr, [facility] [id number] [place] [address] Apr, [facility] [address], [place] [address] Apr, [facility] [address] [id number], [place] [address] Apr, [facility] [address] [id number], [place] [address] Mar, [facility] [address] [id number], [place] [address] Mar, IMMUNIZATIONS No Known Immunizations SOCIAL HISTORY Never Assessed REASON FOR VISIT Anxiety. PLAN OF CARE Activity Details Follow Up prn Reason:anxiety VITAL SIGNS MEDICATIONS No Known Medications RESULTS No Results PROCEDURES Procedure Date Ordered Result Body Site Psychotherapy, patient &/family, 30 minutes, established patient September 14, 2016 INSTRUCTIONS MEDICATIONS ADMINISTERED No Known Medications
--- OUTSIDE RECORDS SUMMARY | 2017-12-25 14:21 | XMS REPORT ---
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 pylori infection A04.8 Active 756957415 Problem Dyspepsia R10.13 Active 228107099 ALLERGIES No Known Allergies ENCOUNTERS Encounter Location Date Diagnosis [place] [address] [address] Aug, Well woman exam Z01.419 ; Screening examination for sexually transmitted disease Z11.3 and Mittelschmerz N94.0 [place] [address] [place] [id number] [place] [address] Sep, Dental examination Z01.20 [place] [id number] [place] [address] 84651- 2766 Sep, General medical exam Z00.00 ; Anxiety F41.9 ; Dyspepsia R10.13 and H. pylori infection A04.8 [place] [address] [place] [id number] [place] [address]358[address] Sep, General medical exam Z00.00 ; Anxiety F41.9 ; Dyspepsia R10.13 and H. pylori infection A04.8 [place] [address] [place] [id number] [place] [address]08- [address]602 Sep, [place] [address] [place] [id number] [place] [address]39[address]- 2003 Aug, Anxiety state, unspecified F41.1 [place] [address] [place] [id number] [place] [address] 51631- 1199 Aug, [place] [address] [place] [id number] [place] [address] 54307- 0510 Apr, Routine gynecological examination Z01.419 [facility] [place] [address] [place] [id number] [place] [phone] June, Dental examination Z01.20 [place] [address] [place] [id number] [place] [address] 13420- 2375 Apr, Low grade intrepith lesion cyto smr crvx (LGSIL) R87.612 [place] [address] [place] [id number] [place] [address] 23752- 9658 Apr, Well woman exam Z01.419 ; Encounter for screening for malignant neoplasm of cervix Z12.4 ; Routine screening for STI (sexually transmitted infection) Z11.3 ; Patient is a currently breast-feeding mother Z39.1 and Bartholin cyst N75.0 [place] [address] [place] [id number] [place] [address]01- 3860 Feb, Routine follow-up Z39.2 ; Constipation, unspecified K59.00 and Encounter for counseling regarding contraception Z30.9 [place] [address] [place] [id number] [place] [address]27- 2178 Jan, Normal , third trimester Z34.93 ; GBS (group B Streptococcus carrier), +RV culture, currently O99.820 and 38 weeks gestation of Z3A.38 [place] [address] [place] [id number] [place] [address] 31126- 7941 24 Dec, 2014 Normal , third trimester Z34.93 ; GBS (group B Streptococcus carrier), +RV culture, currently O99.820 and 37 weeks gestation of Z3A.37 [place] [address] [place] [id number] [place] [address] 52984- [address] Dec, with 35 completed weeks gestation Z3A.35 ; Normal in third trimester Z34.93 ; Encounter for immunization Z23 and Bartholin cyst N75.0 [place] [address] [place] [id number] [place] [address] 90759- 1777 30 Oct, 2014 [facility] [address] [place] [id number] [place] [address] 95940- 8481 Oct, Screening for diabetes mellitus V77.1 ; Influenza vaccine administered V04.81 ; Screening, iron deficiency anemia V78.0 and , normal subsequent V22.1 [place] [address] [address]- [address] Sep, , normal subsequent V22.1 [place] [address] [place] [id number] [place] [address] 64592- 6844 Aug, , normal subsequent V22.1 and Screen for STD ( sexually transmitted disease) V74.5 [place] [address] [place] [id number] [place] [address] 17444- 9716 Jul, test positive V72.42 ; , normal subsequent V22.1 and Screen for STD (sexually transmitted disease) V74.5 [place] [address] [place] [id number] [place] [address] 60127- 9895 Jul, test positive V72.42 [facility] [place] [address] [place] [id number] [place] [address] [phone] Jul, Dental examination V72.2 [facility] [address] [place] [id number] [place] [address] [id number] June, Dental examination V72.2 [facility] [address] [place] [id number] [place] [address] 99161- [address]707 May, [facility] [address] [place] [id number] [place] [address]- 3492 May, [facility] [address] [place] [id number] [place] [address] 48855- 5098 Dec, [facility] [place] [facility] [address] [id number] [place] [address]- 5436 24 Dec, 2013 [facility] [place] [facility] [address] [id number] [place] [address]- 7777 Dec, [facility] [place] [facility] [address] [id number] [place] [address]- 9986 10 Dec, 2013 [facility] [place] [facility] [address] [id number] [place] [address]- 6723 2013 [facility] [place] [facility] [address] [id number] [place] [address]- [address] 2013 [facility] [place] [facility] [address] [id number] [place] [address]- 9010 18 Oct, 2013 [facility] [place] [facility] [address] [id number] [place] [address]- 8624 18 Oct, 2013 [facility] [place] [facility] [address] [id number] [place] [address]- 4373 17 Oct, 2013 [facility] [place] [facility] [address] [id number] [place] [address]- 6240 17 Oct, 2013 [facility] [place] [facility] [address] [id number] [place] [address]- 5740 10 Oct, 2013 [facility] [place] [facility] [address] [id number] [place] [address]- 7407 10 Oct, 2013 [facility] [place] [facility] [address] [id number] [place] [address]- 3649 09 Sep, 2013 [facility] [place] [facility] [address] [id number] [place] [address]- 7569 05 Sep, 2013 [facility] [place] [facility] [address] [id number] [place] [address]- 4606 03 Sep, 2013 [facility] [place] [facility] [address] [id number] [place] [address]- 1666 03 Sep, 2013 [facility] [place] [facility] [address] [id number] [place] [address]- 4347 Sep, [facility] [place] [facility] [address] [id number] [place] [address]- 0700 Sep, [facility] [place] [facility] [address] [id number] [place] [address]- 4377 Sep, [facility] [place] [facility] [address] [id number] [place] [address]- 6955 Sep, [facility] [place] [facility] [address] [id number] [place] [address]- 6002 Aug, [facility] [place] [facility] [address] [id number] [place] [address]- 7470 Aug, [facility] [place] [facility] [address] [id number] [place] [address]- 2669 Aug, [facility] [place] [facility] [address] [id number] [place] [address]- 2429 Aug, [facility] [place] [facility] [address] [id number] [place] [address]- 8469 Aug, [facility] [place] [facility] [address] [id number] [place] [address]- 0934 Aug, [facility] [place] [facility] [address] [id number] [place] [address]- 8126 Jul, [facility] [place] [facility] [address] [id number] [place] [address]- 1410 Jul, [facility] [place] [facility] [address] [id number] [place] [address]- 2409 Jul, [facility] [place] [facility] [address] [id number] [place] [address]- 8300 Jul, [facility] [place] [facility] [address] [id number] [place] [address]- 1738 Jul, [facility] [place] [facility] [address] [id number] [place] [address]- 8704 Jul, [facility] [place] [facility] [address] [id number] [place] [address]- 5205 Jul, [facility] [place] [facility] [address] [id number] [place] [address]- 4312 Jul, [facility] [place] [facility] [address] [id number] [place] [address]- 3692 June, [facility] [place] [facility] [address] [id number] [place] [address]- 9655 June, [facility] [place] [facility] [address] [id number] [place] [address]- 3885 June, [facility] [place] [facility] [address] [id number] [place] [address]- 6308 June, [facility] [place] [facility] [address] [id number] [place] [address]- 8586 June, [facility] [place] [facility] [address] [id number] [place] [address]- 4696 May, [facility] [place] [facility] [address] [id number] [place] [address]- 9753 May, [facility] [place] [facility] [address] [id number] [place] [address]- 2057 May, [facility] [place] [facility] [address] [id number] [place] [address]- 6329 May, [facility] [place] [facility] [address] [id number] [place] [address]- 4201 15 May, 2013 [facility] [place] [facility] [address] [id number] [place] [address]- 4868 15 May, 2013 [facility] [place] [facility] [address] [id number] [place] [address] May, [facility] [place] [facility] [address] [id number] [place] [address]- 5241 May, [facility] [place] [facility] [address] [id number] [place] [address] May, [facility] [address] [id number] [place] [address]- 7821 May, [facility] [address] [id number] [place] [address]- 5392 May, [facility] [address] [facility] [id number] [place] [address]- 7449 May, [facility] [address] [id number] [place] [address]- 6013 May, [facility] [address] [facility] [id number] [place] [address]- 3863 May, [facility] [address] [facility] [id number] [place] [address]- 2348 May, [facility] [address] [facility] [id number] [place] [address]- 2999 May, [facility] [address] [facility] [id number] [place] [address]- 1983 Apr, [facility] [address] [facility] [id number] [place] [address]- 8669 Apr, [facility] [address] [facility] [id number], [place] [address]- 0133 Apr, [facility] [address] [facility] [id number][place] [address]- 2328 Apr, [facility] [address] [facility] [id number], [place] [address]- 6878 Apr, [facility] [address] [facility] [id number], [place] [address]- 0659 Apr, [facility] [address] [facility] [id number], [place] [address]- 4173 Mar, [facility] [address] [facility] [id number], [place] [address]- 6304 Mar, IMMUNIZATIONS No Known Immunizations SOCIAL HISTORY Never Assessed REASON FOR VISIT Annual physical (female) -- noellindadariusz marisol, having pelvic pain on rt side , a little lump on rt breast PLAN OF CARE Activity Details Follow Up 1 Year Reason:WWE VITAL SIGNS Height 62 in 2017-09-03 Weight 109.0 lbs 2017-09-03 Temperature 97.1 degrees Fahrenheit 2017-09-03 Heart Rate 68 bpm 2017-09-03 Respiratory Rate 18 2017-09-03 BMI 19.93 kg/m2 2017-09-03 Blood pressure systolic 110 mmHg 2017-09-03 Blood pressure diastolic 68 mmHg 2017-09-03 MEDICATIONS Medication Instructions Dosage Frequency Start Date End Date Duration Status Omeprazole 40 mg Orally Once a day 1 capsule 24h Sep, 30 day(s ) Not-Taking Depo-Provera Not-Taking Paroxetine HCl 10 mg Orally Once a day 1 tablet in the morning 24h Sep, 30 day(s) Not-Taking RESULTS No Results PROCEDURES Procedure Date Ordered Result Body Site Bacterial Vaginosis In House September 03, 2017 TRICHOMONAS ASSAY W/OPTIC September 03, 2017 CULTURE, BACTERIA, OTHER September 03, 2017 INSTRUCTIONS MEDICATIONS ADMINISTERED No Known Medications
--- OUTSIDE RECORDS SUMMARY | 2017-12-25 14:21 | XMS REPORT ---
Author Author VIVIEN PÉREZ [employer] Address Unknown Phone Unavailable Care Team Providers Care Billet Inspector Name Role Phone VIVIEN PÉREZ CP Unavailable Allergies, Adverse Reactions, Alerts Substance Reaction Event Type N.K.D.A. Info Not Available Non Drug Allergy Problems Problem Type Condition Code Onset Dates Condition Status Problem Bartholin cyst N75.0 Active Assessment Low grade intrepith lesion cyto smr crvx (LGSIL) R87.612 Active Problem Patient is a currently breast-feeding mother Z39.1 Active Medications No Known Medications Procedures Procedure Coding System Code Date BX/CURETT OF CERVIX W/SCOPE CPT-4 54710 May 16, 2015 URINE TEST CPT-4 47122 May 16, 2015 Vital Signs Date/Time: May 16, 2015 Temperature 98.0 F Weight 117.0 lbs Height 62 in BMI 21.40 Index Blood Pressure Diastolic 78 mmHg Blood Pressure Systolic 100 mmHg Cardiac Monitoring Heart Rate 70 bpm Results Name Result Date Reference Range Unit Abnormality Flag PATHOLOGY REPORT PDF Report ----PDF Report1 [facility] [id number] TEST, URINE (IN HOUSE) ----RESULTS negative [id number] ----Lot # [id number] ----Control + [id number] ----Exp date [id number] COLP W/ BX & ECC Summary Purpose e[employer]Works Submission
--- OUTSIDE RECORDS SUMMARY | 2017-12-25 14:21 | XMS REPORT ---
Author VIVIEN Toth [employer] Address Unknown Phone Unavailable Care Team Providers Care Steamfitter Supervisor Name Role Phone VIVIEN PÉREZ Unavailable Allergies No Known Allergies Problems Problem Type Condition Code Onset Dates Condition Status Problem GBS (group B Streptococcus carrier), +RV culture, currently O99.820 Active Assessment Normal , third trimester Z34.93 Active Problem Normal , third trimester Z34.93 Active Assessment GBS (group B Streptococcus carrier), +RV culture, currently O99.820 Active Assessment 37 weeks gestation of Z3A.37 Active Medications No Known Medications Procedures Procedure Coding System Code Date Office Visit, Est Pt., Level 2 CPT-4 67145 Jan 15, 2015 URINE-NO MICRO CPT-4 09372 Jan 15, 2015 Vital Signs Date/Time: Jan 15, 2015 Temperature 98.0 F Weight 132.0 lbs Height 62 in BMI 24.143 Index Blood Pressure Diastolic 72 mmHg Blood Pressure Systolic 110 mmHg Cardiac Monitoring Heart Rate 76 bpm Results Name Result Date Reference Range Unit Abnormality Flag UA OB DIP (IN HOUSE) ----Glucose negative 20150115 ----Protein negative 20150115 Summary Purpose eClinicalWorks Submission
--- OUTSIDE RECORDS SUMMARY | 2017-12-25 14:21 | XMS REPORT ---
Author Author VIVIEN PÉREZ [facility] [employer] Address Unknown Phone Unavailable Care Team Providers Care Keypunch Operators Supervisor Name Role Phone VIVIEN PÉREZ CP Unavailable Allergies No Known Allergies Problems Problem Type Condition Code Onset Dates Condition Status Problem , normal subsequent V22.1 Active Medications No Known Medications Results No Known Results Summary Purpose [employer]ClinicalWorks Submission
--- OUTSIDE RECORDS SUMMARY | 2017-12-25 14:21 | XMS REPORT ---
Author Author AYAH LOMAS Organization [employer] Address Unknown Phone Unavailable Care Team Providers Care Public Relations Analyst Name Role Phone AYAH LOMAS CP Unavailable Allergies, Adverse Reactions, Alerts Substance Reaction Event Type N.K.D.A. Info Not Available Non Drug Allergy Problems Problem Type Condition Code Onset Dates Condition Status Problem GBS (group B Streptococcus carrier), +RV culture, currently O99.820 Active Assessment Routine follow-up Z39.2 Active Problem Normal , third trimester Z34.93 Active Assessment Constipation, unspecified K59.00 Active Assessment Encounter for counseling regarding contraception Z30.9 Active Medications Medication Code System Code Instructions Start Date End Date Status Dosage [facility] [id number] 28-0.8 MG Orally not defined Procedures Procedure Coding System Code Date Office Visit, Est Pt., Level 3 CPT-4 94434 Mar 21, 2015 Vital Signs Date/Time: Mar 21, 2015 Temperature 97.6 F Weight 114.6 lbs Height 62 in BMI 20.96 Index Blood Pressure Diastolic 60 mmHg Blood Pressure Systolic 92 mmHg Cardiac Monitoring Heart Rate 78 bpm Results No Known Results Summary Purpose [employer]ClinicalWorks Submission
--- OUTSIDE RECORDS SUMMARY | 2017-12-25 14:21 | XMS REPORT ---
Author Author VIVIEN PÉREZ [employer] Address Unknown Phone Unavailable Care Team Providers Care Tunnel Elastic Operator Lockstitch Name Role Phone VIVIEN PÉREZ Unavailable Allergies No Known Allergies Problems Problem Type Condition Code Onset Dates Condition Status Problem GBS (group B Streptococcus carrier), +RV culture, currently O99.820 Active Assessment Normal , third trimester Z34.93 Active Problem Normal , third trimester Z34.93 Active Assessment GBS (group B Streptococcus carrier), +RV culture, currently O99.820 Active Assessment 38 weeks gestation of Z3A.38 Active Medications No Known Medications Procedures Procedure Coding System Code Date Office Visit, Est Pt., Level 2 CPT-4 55843 Jan 22, 2015 URINE-NO MICRO CPT-4 28777 Jan 22, 2015 Vital Signs Date/Time: Jan 22, 2015 Temperature 98.6 F Weight 133.5 lbs Height 62 in BMI 24.417 Index Blood Pressure Diastolic 62 mmHg Blood Pressure Systolic 90 mmHg Cardiac Monitoring Heart Rate 80 bpm Results No Known Results Summary Purpose eClinicalWorks Submission
--- OUTSIDE RECORDS SUMMARY | 2017-12-25 14:21 | XMS REPORT ---
Author Author VIVIEN PÉREZ [facility] [employer] Address Unknown Phone Unavailable Care Team Providers Care Hall Clerk Name Role Phone VIVIEN PÉREZ Unavailable Allergies No Known Allergies Problems Problem Type Condition ICD-9 Code Onset Dates Condition Status Assessment , normal subsequent V22.1 Active Problem , normal subsequent V22.1 Active Medications No Known Medications Procedures Procedure Coding System Code Date Office Visit, Est Pt., Level 2 CPT-4 01213 Oct 19, 2014 URINE-NO MICRO CPT-4 38784 Oct 19, 2014 Vital Signs Date/Time: Oct 19, 2014 Temperature 98.0 F Weight 117.0 lbs Height 62 in BMI 21.4 Index Blood Pressure Diastolic 78 mmHg Blood Pressure Systolic 120 mmHg Cardiac Monitoring Heart Rate 76 bpm Results No Known Results Summary Purpose eClinicalWorks Submission
--- OUTSIDE RECORDS SUMMARY | 2017-12-25 14:21 | XMS REPORT ---
Author Author GINETTE CINTRON [employer] Address Unknown Phone Unavailable Care Team Providers Care Quality Process Lead Name Role Phone GINETTE CINTRON CP Unavailable Allergies No Known Allergies Problems Problem Type Condition ICD-9 Code Onset Dates Condition Status Assessment Dental examination V72.2 Active Medications No Known Medications Procedures Procedure Coding System Code Date Billing Notes on claim CPT-4 EC109 July 11, 2014 Results No Known Results Summary Purpose eClinicalWorks Submission
--- OUTSIDE RECORDS SUMMARY | 2017-12-25 14:21 | XMS REPORT ---
Author Author KENY OH Organization [facility] Address [address] [place] [address] Care Team Providers Care Protection Specialist Name Role Phone KENY OH Unavailable PROBLEMS Type Condition ICD9-CM Code MFT79-HE Code Onset Dates Condition Status SNOMED Code Problem Anxiety F41.9 Active 05385805 Problem H. pylori infection A04.8 Active 380586886 Problem Bartholin cyst N75.0 Active 83989889 Problem Patient is a currently breast-feeding mother Z39.1 Active 516158764 Problem Dyspepsia R10.13 Active 655675288 Problem Anxiety state, unspecified F41.1 Active [id number] ALLERGIES No Known Allergies ENCOUNTERS Encounter Location Date Diagnosis [place] [id number] [place] [address] 33324- 5878 Sep, Dental examination Z01.[address] [address] Sep, General medical exam Z00.00 ; Anxiety F41.9 ; Dyspepsia R10.13 and H. pylori infection A04.8 [place] [id number] [place] [address] 30280- 5613 Sep, [place] [id number] [place] [address] 67733- 7369 Sep, General medical exam Z00.00 ; Anxiety F41.9 ; Dyspepsia R10.13 and H. pylori infection A04.8 [place] [id number] [place] [address] 77850- 5462 Aug, [place] [id number] [place] [address] 74014- 3814 Aug, Anxiety state, unspecified F41.1 [place] [id number] [place] [address] 58506- 5132 Apr, Routine gynecological examination Z01.419 [facility] [address] [place] [address] [id number] June, Dental examination Z01.20 [place] [id number] [place] [address] 83383- 0978 Apr, Low grade intrepith lesion cyto smr crvx (LGSIL) R87.612 [place] [address] [place] [address] 76183- 5255 Apr, Well woman exam Z01.419 ; Encounter for screening for malignant neoplasm of cervix Z12.4 ; Routine screening for STI (sexually transmitted infection) Z11.3 ; Patient is a currently breast-feeding mother Z39.1 and Bartholin cyst N75.0 [place] [address] [place] [address] 38486- 4129 Feb, Routine follow-up Z39.2 ; Constipation, unspecified K59.00 and Encounter for counseling regarding contraception Z30.9 [place] [id number] [place] [address] 67138- 3893 Jan, Normal , third trimester Z34.93 ; GBS (group B Streptococcus carrier), +RV culture, currently O99.820 and 38 weeks gestation of Z3A.38 [place] [address] [place] [address] 83127- 2706 Dec, Normal , third trimester Z34.93 ; GBS (group B Streptococcus carrier), +RV culture, currently O99.820 and 37 weeks gestation of Z3A.37 [place] [address] [place] [address] 02364- 5587 10 Dec, 2014 with 35 completed weeks gestation Z3A.35 ; Normal in third trimester Z34.93 ; Encounter for immunization Z23 and Bartholin cyst N75.0 [place] [address] [place] [address]- 3482 30 Oct, 2014 [facility] [address] [place] [address] 50175- 1938 Oct, Screening for diabetes mellitus V77.1 ; Influenza vaccine administered V04.81 ; Screening, iron deficiency anemia V78.0 and , normal subsequent V22.1 [facility] [id number] [place] [address] 57725- 0342 Sep, , normal subsequent V22.1 [facility] [id number] [place] [address] 58717- 5451 Aug, , normal subsequent V22.1 and Screen for STD ( sexually transmitted disease) V74.5 [facility] [address] [place] [address] 09078- 6807 Jul, test positive V72.42 ; , normal subsequent V22.1 and Screen for STD (sexually transmitted disease) V74.5 [facility] [address] [address] Jul, test positive V72.42 [facility] [id number] [place] [address] [id number] Jul, Dental examination V72.2 [facility] [id number] [place] [address] [id number] June, Dental examination V72.2 [facility] [address] [place] [address] 97098- 4306 May, [facility] [address] [address] 4[address] May, [facility] [id number] [place] [address] [id number]- 3983 Dec, [facility] [address] [address]- 6548 Dec, [facility] [id number] [place] [address] 29952- 5508 10 Dec, 2013 [facility] [place] [facility] [address] [id number] [place] [address]- 5013 10 Dec, 2013 [facility] [place] [facility] [address] [id number] [place] [address]- 3686 2013 [facility] [place] [facility] [address] [id number] [place] [address]- 7949 2013 [facility] [place] [facility] [address] [id number] [place] [address]- 2004 18 Oct, 2013 [facility] [place] [facility] [address] [id number] [place] [address]- 5293 18 Oct, 2013 [facility] [place] [facility] [address] [id number] [place] [address]- 7351 17 Oct, 2013 [facility] [place] [facility] [address] [id number] [place] [address]- 8123 17 Oct, 2013 [facility] [place] [facility] [address] [id number] [place] [address]- 4013 10 Oct, 2013 [facility] [place] [facility] [address] [id number] [place] [address]- 2956 10 Oct, 2013 [facility] [place] [facility] [address] [id number] [place] [address]- 0152 09 Oct, 2013 [facility] [place] [facility] [address] [id number] [place] [address]- 8818 05 Oct, 2013 [facility] [place] [facility] [address] [id number] [address]- 7085 03 Oct, 2013 [facility] [place] [facility] [address] [id number] [place] [address]- 7268 Oct, 2013 [facility] [place] [facility] [address] [id number] [place] [address]- 0168 18 Sep, 2013 [facility] [place] [facility] [address] [id number] [place] [address]- 5040 Sep, [facility] [place] [facility] [address] [id number] [place] [address]- 7776 Sep, [facility] [place] [facility] [address] [id number] [place] [address]- 5408 Sep, [facility] [place] [facility] [address] [id number] [place] [address]- 7692 Aug, [facility] [place] [facility] [address] [id number] [place] [address]- 9911 Aug, [facility] [place] [facility] [address] [id number] [place] [address]- 6042 Aug, [facility] [place] [facility] [address] [id number] [place] [address]- 3767 Aug, [facility] [place] [facility] [address] [id number] [place] [address]- 1271 Aug, [facility] [place] [facility] [address] [id number] [place] [address]- 1245 Aug, [facility] [place] [facility] [address] [id number] [place] [address]- 5068 Jul, [facility] [place] [facility] [address] [id number] [place] [address]- 4714 Jul, [facility] [place] [facility] [address] [id number] [place] [address]- 5863 Jul, [facility] [place] [facility] [address] [id number] [place] [address]- 2455 Jul, [facility] [place] [facility] [address] [id number] [place] [address]- 0719 Jul, [facility] [place] [facility] [address] [id number] [place] [address]- 6690 Jul, [facility] [place] [facility] [address] [id number] [place] [address]- 0301 Jul, [facility] [place] [facility] [address] [id number] [place] [address]- 1212 Jul, [facility] [place] [facility] [address] [id number] [place] [address]- 0805 June, [facility] [place] [facility] [address] [id number] [place] [address]- 0645 June, [facility] [place] [facility] [address] [id number] [place] [address]- 4682 June, [facility] [place] [facility] [address] [id number] [place] [address]- 9532 June, [facility] [place] [facility] [address] [id number] [place] [address]- 2901 June, [facility] [place] [facility] [address] [id number] [place] [address]- 7944 May, [facility] [place] [facility] [address] [id number] [place] [address]- 2068 May, [facility] [place] [facility] [address] [id number] [place] [address]- 3930 May, [facility] [place] [facility] [address] [id number] [place] [address]- 4197 May, [facility] [place] [facility] [address] [id number] [place] [address]- 5944 May, [facility] [place] [facility] [address] [id number] [place] [address]- 8350 May, [facility] [place] [facility] [address] [id number] [address] May, [facility] [place] [facility] [address] [id number] [place] [address]114 May, [facility] [place] [facility] [address] [id number] [place] [address] May, [facility] [place] [facility] [address] [id number] [place] [address]- 9457 May, [facility] [place] [facility] [address] [id number] [place] [address]- 8066 May, [facility] [id number] [address]- 1331 May, [facility] [address] [address]- 0696 May, [facility] [id number] [address]- 9837 May, [facility] [address] [address]- 1965 May, [facility] [id number] [address]- 8834 May, [facility] [address], [place] [address]- 5447 Apr, [facility] [address] [address]- 0520 Apr, [facility] [address], [place] [address]- 3079 Apr, [facility] [address], [place] [address]- 6186 Apr, [facility] [address] [address]- 7204 Apr, [facility] [id number] [address]- 6652 Apr, [facility] [address] [address]- 5510 Mar, [facility] [id number] [address]- 8813 Mar, IMMUNIZATIONS No Known Immunizations SOCIAL HISTORY Never Assessed REASON FOR VISIT Establish Care / anxiety x the last 3 months -- marisol mcclain, patient is requesting a test , states she is using the monthly dep[place] injection from [place] and started having nauseas 2 weeks ago PLAN OF CARE Activity Details Follow Up 4 weeks or as indicated by lab Reason: VITAL SIGNS Height 62 in 2016-09-24 Weight 113.0 lbs 2016-09-24 Temperature 97.0 degrees Fahrenheit 2016-09-24 Heart Rate 68 bpm 2016-09-24 Respiratory Rate 16 2016-09-24 BMI 20.67 kg/m2 2016-09-24 Blood pressure systolic 112 mmHg 2016-09-24 Blood pressure diastolic 68 mmHg 2016-09-24 MEDICATIONS Medication Instructions Dosage Frequency Start Date End Date Duration Status Amoxicillin 500 mg Orally every 12 hrs 2 capsule 12h Sep, Sep, 14 days Active Biaxin 500 mg Orally every 12 hrs 1 tablet 12h Sep, Sep, 14 days Active Omeprazole 40 mg Orally Once a day 1 capsule 24h Sep, 30 day(s ) Active Depo-Provera Active Paroxetine HCl 10 mg Orally Once a day 1 tablet in the morning 24h Sep, 30 day(s) Active RESULTS Name Result Date Reference Range H PYLORI (IN HOUSE) 2016-09-24 H. PYLORI Positive Control + Lot # [id number] Exp date 10/07/07 PROCEDURES Procedure Date Ordered Result Body Site IMMUNOASSAY,INFECTIOUS AGENT Sep 24, 2016 INSTRUCTIONS MEDICATIONS ADMINISTERED No Known Medications
--- OUTSIDE RECORDS SUMMARY | 2017-12-25 14:21 | XMS REPORT ---
Author Author VIVIEN PÉREZ [facility] eClinical[employer] Address Unknown Phone Unavailable Care Team Providers Care Wafer Polishing Worker Name Role Phone VIVIEN PÉREZ Unavailable Allergies No Known Allergies Problems Problem Type Condition Code Onset Dates Condition Status Assessment with 35 completed weeks gestation Z3A.35 Active Assessment Normal in third trimester Z34.93 Active Problem Normal , third trimester Z34.93 Active Assessment Encounter for immunization Z23 Active Assessment Bartholin cyst N75.0 Active Medications No Known Medications Procedures Procedure Coding System Code Date DETECT AGNT MULT, DNA, AMPLI CPT-4 96253 Jan 01, 2015 Office Visit, Est Pt., Level 3 CPT-4 27891 Jan 01, 2015 URINE-NO MICRO CPT-4 30962 Jan 01, 2015 SINGLE IMMUNIZATION ADMIN CPT-4 91377 Jan 01, 2015 TDAP (BOOSTRIX) CPT-4 95366 Jan 01, 2015 Vital Signs Date/Time: Jan 01, 2015 Temperature 97.4 F Weight 128.8 lbs Height 62 in BMI 23.558 Index Blood Pressure Diastolic 62 mmHg Blood Pressure Systolic 118 mmHg Cardiac Monitoring Heart Rate 78 bpm Results Name Result Date Reference Range Unit Abnormality Flag UA OB DIP (IN HOUSE) Immunizations Vaccine Administration Date TDAP (BOOSTRIX) Jan 01, 2015 Summary Purpose eClinicalWorks Submission
--- OUTSIDE RECORDS SUMMARY | 2017-12-25 14:22 | XMS REPORT ---
Author Author LONA GALLEGOS [facility] Address [address] [place] [address] Care Team Providers Care Dispute Specialist Name Role Phone LONA GALLEGOS Unavailable PROBLEMS Type Condition ICD9-CM Code LDZ65-JO Code Onset Dates Condition Status SNOMED Code Problem Anxiety F41.9 Active 14639921 Problem H. pylori infection A04.8 Active 763832550 Problem Bartholin cyst N75.0 Active 35101253 Problem Patient is a currently breast-feeding mother Z39.1 Active 638795784 Problem Dyspepsia R10.13 Active 181467709 Problem Anxiety state, unspecified F41.1 Active 108224957 ALLERGIES No Known Allergies ENCOUNTERS Encounter Location Date Diagnosis [place] [id number] [place] [address] 72556- 8525 Sep, Dental examination Z01.20 [place] [id number] [place] [address] 59286- 5272 Sep, General medical exam Z00.00 ; Anxiety F41.9 ; Dyspepsia R10.13 and H. pylori infection A04.8 [place] [address] [place] [address] 78386- 1568 Sep, [place] [id number] [place] [address] 95696- 5243 Sep, General medical exam Z00.00 ; Anxiety F41.9 ; Dyspepsia R10.13 and H. pylori infection A04.8 [place] [address] [place] [address] 43138- 3983 Aug, [place] [id number] [place] [address] 14699- 9944 Aug, Anxiety state, unspecified F41.1 [facility] [id number] [place] [address] 55749- 5172 Apr, Routine gynecological examination Z01.419 [facility] [id number] [place] [address] [id number] June, Dental examination Z01.20 [place] [address] [place] [address] 67031- 5563 Apr, Low grade intrepith lesion cyto smr crvx (LGSIL) R87.612 [place] [address] [place] [address] 13172- 3274 Apr, Well woman exam Z01.419 ; Encounter for screening for malignant neoplasm of cervix Z12.4 ; Routine screening for STI (sexually transmitted infection) Z11.3 ; Patient is a currently breast-feeding mother Z39.1 and Bartholin cyst N75.0 [place] [address] [place] [address] 03753- 4593 Feb, Routine follow-up Z39.2 ; Constipation, unspecified K59.00 and Encounter for counseling regarding contraception Z30.9 [place] [address] [place] [address] 54116- 2667 Jan, Normal , third trimester Z34.93 ; GBS (group B Streptococcus carrier), +RV culture, currently O99.820 and 38 weeks gestation of Z3A.38 [place] [id number] [place] [address] 62268- 6594 Dec, Normal , third trimester Z34.93 ; GBS (group B Streptococcus carrier), +RV culture, currently O99.820 and 37 weeks gestation of Z3A.37 [place] [address] [place] [address] 85376- 9823 10 Dec, 2014 with 35 completed weeks gestation Z3A.35 ; Normal in third trimester Z34.93 ; Encounter for immunization Z23 and Bartholin cyst N75.0 [place] [id number] [address] Oct, [facility] [id number] [place] [address] 92350- 1704 Oct, Screening for diabetes mellitus V77.1 ; Influenza vaccine administered V04.81 ; Screening, iron deficiency anemia V78.0 and , normal subsequent V22.1 [facility] [id number] [place] [address] 80039- 3943 Sep, , normal subsequent V22.1 [facility] [id number] [place] [address] 84367- 8662 Aug, , normal subsequent V22.1 and Screen for STD ( sexually transmitted disease) V74.5 [facility] [id number] [place] [address] 38442- 9398 Jul, test positive V72.42 ; , normal subsequent V22.1 and Screen for STD (sexually transmitted disease) V74.5 [facility] [address] [place] [address] 78880- 2886 Jul, test positive V72.42 [facility] [id number] [place] [address] [id number] Jul, Dental examination V72.2 [facility] [id number] [place] [address] [id number] June, Dental examination V72.2 [facility] [address] [place] [address] 88761- 4164 May, [facility] [address] [place] [address] 57843- 8191 May, [facility] [id number] [place] [address] 27324- 4678 Dec, [facility] [address] [place] [address] 02203- 9143 Dec, [facility] [id number] [place] [address] 84506- 1486 Dec, [facility] [place] [facility] [address] [id number] [place] [address]- 5051 10 Dec, 2013 [facility] [place] [facility] [address] [id number] [place] [address]- 0311 2013 [facility] [place] [facility] [address] [id number] [place] [address]- 0188 2013 [facility] [place] [facility] [address] [id number] [place] [address]- 1043 18 Oct, 2013 [facility] [place] [facility] [address] [id number] [place] [address]- 4547 18 Oct, 2013 [facility] [place] [facility] [address] [id number] [place] [address]- 0631 17 Oct, 2013 [facility] [place] [facility] [address] [id number] [place] [address]- 1845 17 Oct, 2013 [facility] [place] [facility] [address] [id number] [place] [address]- 4673 10 Oct, 2013 [facility] [place] [facility] [address] [id number] [place] [address]- 2520 10 Oct, 2013 [facility] [place] [facility] [address] [id number] [place] [address]- 0314 09 Oct, 2013 [facility] [place] [facility] [address] [id number] [place] [address]- 5406 05 Oct, 2013 [facility] [place] [facility] [address] [id number] [place] [address]- 3602 03 Oct, 2013 [facility] [place] [facility] [address] [id number] [place] [address]- 5594 Oct, 2013 [facility] [place] [facility] [address] [id number] [place] [address]- 8763 Sep, [facility] [place] [facility] [address] [id number] [place] [address]- 2102 Sep, [facility] [place] [facility] [address] [id number] [place] [address]- 6662 Sep, [facility] [place] [facility] [address] [id number] [place] [address]- 8674 Sep, [facility] [place] [facility] [address] [id number] [place] [address]- 5812 Aug, [facility] [place] [facility] [address] [id number] [place] [address]- 3183 Aug, [facility] [place] [facility] [address] [id number] [place] [address]- 6564 Aug, [facility] [place] [facility] [address] [id number] [place] [address]- 1341 Aug, [facility] [place] [facility] [address] [id number] [place] [address]- 2576 Aug, [facility] [place] [facility] [address] [id number] [place] [address]- 3054 Aug, [facility] [place] [facility] [address] [id number] [place] [address]- 1659 Jul, [facility] [place] [facility] [address] [id number] [place] [address]- 5763 Jul, [facility] [place] [facility] [address] [id number] [place] [address]- 9273 Jul, [facility] [place] [facility] [address] [id number] [place] [address]- 3586 Jul, [facility] [place] [facility] [address] [id number] [place] [address]- 3947 Jul, [facility] [place] [facility] [address] [id number] [place] [address]- 7255 Jul, [facility] [place] [facility] [address] [id number] [place] [address]- 7434 Jul, [facility] [place] [facility] [address] [id number] [place] [address]- 9097 Jul, [facility] [place] [facility] [address] [id number] [place] [address]- 9486 June, [facility] [place] [facility] [address] [id number] [place] [address]- 5031 June, [facility] [place] [facility] [address] [id number] [place] [address]- 1983 June, [facility] [place] [facility] [address] [id number] [place] [address]- 4522 June, [facility] [place] [facility] [address] [id number] [place] [address]- 4569 June, [facility] [place] [facility] [address] [id number] [place] [address]- 4151 May, [facility] [place] [facility] [address] [id number] [place] [address]- 8254 May, [facility] [place] [facility] [address] [id number] [place] [address]- 6621 May, [facility] [place] [facility] [address] [id number] [place] [address]- 4128 May, [facility] [place] [facility] [address] [id number] [place] [address]- 7441 May, [facility] [place] [facility] [address] [id number] [place] [address]- 7056 May, [facility] [place] [facility] [address] [id number] [id number] May, [facility] [place] [facility] [address] [id number] [place] [address]- 8697 May, [facility] [place] [facility] [address] [id number] [place] [id number] May, [facility] [place] [facility] [address] [id number] [place] [address]- 2668 May, [facility] [place] [facility] [address] [id number] [address]- 7274 May, [facility] [id number] [address]- 4117 May, [facility] [id number] [address] May, [facility] [address] [place] [address]- 1493 May, [facility] [address] [place] [address]- 2356 May, [facility] [address] [place] [address]- 5054 May, [facility] [address] [place] [address]- 9794 Apr, [facility] [address] [place] [address]- 6482 Apr, [facility] [address] [place] [address]- 3803 Apr, [facility] [address] [place] [address]- 6207 Apr, [facility] [address] [address]- 7278 Apr, [facility] [id number] [address]- 8021 Apr, [facility] [id number] [address]- 8641 Mar, [facility] [id number] [address]- 0961 Mar, IMMUNIZATIONS No Known Immunizations SOCIAL HISTORY Never Assessed REASON FOR VISIT Dental est. care. PLAN OF CARE Activity Details Follow Up ronal Reason:KATHE VITAL SIGNS Blood pressure systolic 109 mmHg 2016-10-21 Blood pressure diastolic 81 mmHg 2016-10-21 MEDICATIONS Medication Instructions Dosage Frequency Start Date End Date Duration Status Omeprazole 40 mg Orally Once a day 1 capsule 24h Sep, 30 day(s ) Active Paroxetine HCl 10 mg Orally Once a day 1 tablet in the morning 24h Sep, 30 day(s) Active RESULTS No Results PROCEDURES Procedure Date Ordered Result Body Site INTRAORL-PERIAPICAL 1 FILM [id number] Oct 21, 2016 INTRAORL-PERIAPICAL EA ADD FILM Oct 21, 2016 TOPICAL FLUORIDE VARNISH Oct 21, 2016 INTRAORL-PERIAPICAL EA ADD FILM Oct 21, 2016 INTRAORL-PERIAPICAL EA ADD FILM Oct 21, 2016 PROPHYLAXIS - ADULT Oct 21, 2016 BITEWINGS - FOUR FILMS Oct 21, 2016 INSTRUCTIONS MEDICATIONS ADMINISTERED No Known Medications
--- OUTSIDE RECORDS SUMMARY | 2017-12-25 14:22 | XMS REPORT ---
Author Author ELIANA VIERA [facility] [place] eClinicalWorks Address Unknown Phone Unavailable Care Team Providers Care Senior Drafter Name Role Phone ELIANA VIERA CP Unavailable Allergies, Adverse Reactions, Alerts Substance Reaction Event Type N.K.D.A. Info Not Available Non Drug Allergy Problems Problem Type Condition Code Onset Dates Condition Status Problem Bartholin cyst N75.0 Active Assessment Dental examination Z01.20 Active Problem Patient is a currently breast-feeding mother Z39.1 Active Medications No Known Medications Procedures Procedure Coding System Code Date PANORAMIC FILM SEE ALSO CODE 18785 CPT-4 D0330 July 23, 2015 LTD ORAL EVALUATION - PROBLEM FOCUS CPT-4 D0140 July 23, 2015 Vital Signs Date/Time: July 23, 2015 Blood Pressure Diastolic 69 mmHg Blood Pressure Systolic 111 mmHg Results No Known Results Summary Purpose eClinicalWorks Submission
--- OUTSIDE RECORDS SUMMARY | 2017-12-25 14:22 | XMS REPORT | Continuity of Care Document ---
Author Author Formerly [facility] Address Unknown Phone Unavailable Allergies Active Description Code Type Severity Reaction Onset Reported/Identified Relationship to Patient Clinical Status Yes No Known Drug Allergies [id number] Drug Allergy Unknown N/A 11/17/2013 Medications There is no data. Problems Date Dx Coded Attending Type Code Diagnosis Diagnosed By 04/20/2013 SAEED DO, DALLAS K V72.42 TEST POSITIVE RESULT 04/20/2013 ANANDA EARTH MOVER, SADIE A V72.42 TEST POSITIVE RESULT 04/20/2013 ANANDA EARTH MOVER, SADIE A V72.42 TEST POSITIVE RESULT 04/20/2013 SAIDA KIMSMORALES V72.42 TEST POSITIVE RESULT 04/20/2013 RAMSES REESE JERONIMO S V72.42 TEST POSITIVE RESULT 04/20/2013 SAEED DO, DALLAS K V72.42 TEST POSITIVE RESULT 04/20/2013 SAEED DO, DALLAS K V72.42 TEST POSITIVE RESULT 04/20/2013 SAEED DO, DALLAS K V72.42 TEST POSITIVE RESULT 04/20/2013 SAEED DO, DALLAS K V72.42 TEST POSITIVE RESULT 04/20/2013 SAEED DO, DALLAS K V72.42 TEST POSITIVE RESULT 04/20/2013 SAEED DO, DALLAS K V72.42 TEST POSITIVE RESULT 04/20/2013 SAEED DO, DALLAS K V72.42 TEST POSITIVE RESULT 04/20/2013 SAEED DO, DALLAS K V72.42 TEST POSITIVE RESULT 04/20/2013 SAEED DO, DALLAS K V72.42 TEST POSITIVE RESULT 04/20/2013 ANANDA EARTH MOVER, SADIE A V72.42 TEST POSITIVE RESULT 04/26/2013 ANANDA EARTH MOVER, SADIE A V22.1 , NORMAL OTHER 04/26/2013 ANANDA EARTH MOVER, SADIE A V74.5 STD SCREEN 04/26/2013 ANANDA EARTH MOVER, SADIE A V22.1 , NORMAL OTHER 04/26/2013 ANANDA EARTH MOVER, SADIE A V74.5 STD SCREEN 04/26/2013 WHITE DDS, MORALES D V22.1 , NORMAL OTHER 04/26/2013 WHITE DDS, MORALES D V74.5 STD SCREEN 04/26/2013 RAMSES EARTH MOVER, JERONIMO S V22.1 , NORMAL OTHER 04/26/2013 RAMSES EARTH MOVER, JERONIMO S V74.5 STD SCREEN 04/26/2013 SAEED DO, DALLAS K V22.1 , NORMAL OTHER 04/26/2013 SAEED DO, DALLAS K V74.5 STD SCREEN 04/26/2013 SAEED DO, DALLAS K V22.1 , NORMAL OTHER 04/26/2013 SAEED DO, DALLAS K V74.5 STD SCREEN 04/26/2013 SAEED DO, DALLAS K V22.1 , NORMAL OTHER 04/26/2013 SAEED DO, DALLAS K V74.5 STD SCREEN 04/26/2013 SAEED DO, DALLAS K V22.1 , NORMAL OTHER 04/26/2013 SAEED DO, DALLAS K V74.5 STD SCREEN 04/26/2013 SAEED DO, DALLAS K V22.1 , NORMAL OTHER 04/26/2013 SAEED DO, DALLAS K V74.5 STD SCREEN 04/26/2013 SAEED DO, DALLAS K V22.1 , NORMAL OTHER 04/26/2013 SAEED DO, DALLAS K V74.5 STD SCREEN 04/26/2013 SAEED DO, DALLAS K V22.1 , NORMAL OTHER 04/26/2013 SAEED DO, DALLAS K V74.5 STD SCREEN 04/26/2013 SAEED DO, DALLAS K V22.1 , NORMAL OTHER 04/26/2013 SAEED DO, DALLAS K V74.5 STD SCREEN 04/26/2013 SAEED DO, DALLAS K V22.1 , NORMAL OTHER 04/26/2013 SAEED DO, DALLAS K V74.5 STD SCREEN 04/26/2013 ANANDA EARTH MOVER, SADIE A V22.1 , NORMAL OTHER 04/26/2013 ANANDA EARTH MOVER, SADIE A V74.5 STD SCREEN 05/25/2013 ANANDA EARTH MOVER, SADIE A V76.2 CERVICAL CANCER SCREENING (PAP SMEAR) 05/25/2013 WHITE DDSMORALES V76.2 CERVICAL CANCER SCREENING (PAP SMEAR) 05/25/2013 JERONIMO PEARCE APRN S V76.2 CERVICAL CANCER SCREENING (PAP SMEAR) 05/25/2013 SAEED DOEASTONA K V76.2 CERVICAL CANCER SCREENING (PAP SMEAR) 05/25/2013 SAEED DO, DALLAS K V76.2 CERVICAL CANCER SCREENING (PAP SMEAR) 05/25/2013 SAEED DO, DALLAS K V76.2 CERVICAL CANCER SCREENING (PAP SMEAR) 05/25/2013 SAEED DO, DALLAS K V76.2 CERVICAL CANCER SCREENING (PAP SMEAR) 05/25/2013 SAEED DO, DALLAS K V76.2 CERVICAL CANCER SCREENING (PAP SMEAR) 05/25/2013 SAEED DO DALLAS K V76.2 CERVICAL CANCER SCREENING (PAP SMEAR) 05/25/2013 SAEED DO, DALLAS K V76.2 CERVICAL CANCER SCREENING (PAP SMEAR) 05/25/2013 SAEED DO DALLAS K V76.2 CERVICAL CANCER SCREENING (PAP SMEAR) 05/25/2013 SAEED EASTON VICTORA K V76.2 CERVICAL CANCER SCREENING (PAP SMEAR) 05/25/2013 SADIE MALAVE APRN V76.2 CERVICAL CANCER SCREENING (PAP SMEAR) 06/06/2013 JERONIMO PEARCE APRN S 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 06/06/2013 JERONIMO PEARCE APRN S 782.1 RASH 06/06/2013 JERONIMO PEARCE APRN S 784.0 HEADACHE 06/06/2013 EASTON SAEED DOA K 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 06/06/2013 SAEED DO DALLAS K 782.1 RASH 06/06/2013 SAEED DO DALLAS K 784.0 HEADACHE 06/06/2013 SAEED DO DALLAS K 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 06/06/2013 SAEED DO DALLAS K 782.1 RASH 06/06/2013 SAEED DO DALLAS K 784.0 HEADACHE 06/06/2013 SAEED DO DALLAS K 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 06/06/2013 SAEED DO, DALLAS K 782.1 RASH 06/06/2013 SAEED DO, DALLAS K 784.0 HEADACHE 06/06/2013 SAEED DO, DALLAS K 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 06/06/2013 SAEED DO, DALLAS K 782.1 RASH 06/06/2013 SAEED DO, DALLAS K 784.0 HEADACHE 06/06/2013 SAEED DO, DALLAS K 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 06/06/2013 SAEED DO, DALLAS K 782.1 RASH 06/06/2013 SAEED DO, DALLAS K 784.0 HEADACHE 06/06/2013 SAEED DO, DALLAS K 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 06/06/2013 SAEED DO, DALLAS K 782.1 RASH 06/06/2013 SAEED DO, DALLAS K 784.0 HEADACHE 06/06/2013 SAEED DO, DALLAS K 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 06/06/2013 SAEED DO, DALLAS K 782.1 RASH 06/06/2013 SAEED DO, DALLAS K 784.0 HEADACHE 06/06/2013 SAEED DO, DALLAS K 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 06/06/2013 SAEED DO, DALLAS K 782.1 RASH 06/06/2013 SAEED DO, DALLAS K 784.0 HEADACHE 06/06/2013 SAEED DO DALLAS K 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 06/06/2013 SAEED DO, DALLAS K 782.1 RASH 06/06/2013 SAEED DO, DALLAS K 784.0 HEADACHE 06/06/2013 ANANDA EARTH MOVER, SADIE A 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 06/06/2013 ANANDA EARTH MOVER, SADIE A 782.1 RASH 06/06/2013 ANANDA EARTH MOVER, SADIE A 784.0 HEADACHE 08/21/2013 SAEED DO DALLAS K V77.1 DIABETES SCREENING 08/21/2013 SAEED DO, DALLAS K V78.0 ANEMIA SCREENING 08/21/2013 SAEED DO, DALLAS K V77.1 DIABETES SCREENING 08/21/2013 SAEED DO, DALLAS K V78.0 ANEMIA SCREENING 08/21/2013 SAEED DO, DALLAS K V77.1 DIABETES SCREENING 08/21/2013 SAEED DO, DALLAS K V78.0 ANEMIA SCREENING 08/21/2013 SAEED DO, DALLAS K V77.1 DIABETES SCREENING 08/21/2013 SAEED DO, DALLAS K V78.0 ANEMIA SCREENING 08/21/2013 SAEED DO, DALLAS K V77.1 DIABETES SCREENING 08/21/2013 SAEED DO, DALLAS K V78.0 ANEMIA SCREENING 08/21/2013 SAEED DO, DALLAS K V77.1 DIABETES SCREENING 08/21/2013 SAEED DO, DALLAS K V78.0 ANEMIA SCREENING 08/21/2013 SAEED DO, DALLAS K V77.1 DIABETES SCREENING 08/21/2013 SAEED DO, DALLAS K V78.0 ANEMIA SCREENING 08/21/2013 SADIE MALAVE APRN A V77.1 DIABETES SCREENING 08/21/2013 SADIE MALAVE APRN A V78.0 ANEMIA SCREENING 09/13/2013 SAEED DO, DALLAS K V06.1 TDAP DX 09/13/2013 SAEED DO, DALLAS K V06.1 TDAP DX 09/13/2013 SAEED DO, DALLAS K V06.1 TDAP DX 09/13/2013 SAEED DO, DALLAS K V06.1 TDAP DX 09/13/2013 SAEED DO, DALLAS K V06.1 TDAP DX 09/13/2013 SAEED DO, DALLAS K V06.1 TDAP DX 09/13/2013 SADIE MALAVE APRN A V06.1 TDAP DX 10/25/2013 SAEED DO, DALLAS K V28.6 GBS SCREENING 10/25/2013 SAEED DO, DALLAS K V28.6 GBS SCREENING 10/25/2013 SAEED DO, DALLAS K V28.6 GBS SCREENING 10/25/2013 SADIE MALAVE APRN A V28.6 GBS SCREENING 11/01/2013 SAEED DO, DALLAS K V02.51 GBS - CARRIER OR SUSPECTED CARRIER 11/01/2013 SAEED DO, DALLAS K V02.51 GBS - CARRIER OR SUSPECTED CARRIER 11/01/2013 SAEED DO, DALLAS K V02.51 GBS - CARRIER OR SUSPECTED CARRIER 11/01/2013 ANANDA EARTH MOVER, SADIE A V02.51 GBS - CARRIER OR SUSPECTED CARRIER 11/13/2013 SAEED DO, DALLAS K V01.6 CONTACT WITH OR EXPOSURE TO VENEREAL DISEASES 11/13/2013 ANANDA EARTH MOVER, SADIE A V01.6 CONTACT WITH OR EXPOSURE TO VENEREAL DISEASES 11/19/2013 SAEED DO, DALLAS K Ot 648.91 11/19/2013 SAEED DO, DALLAS K Ot 661.31 11/19/2013 SAEED DO, DALLAS K Ot V02.51 11/19/2013 SAEED DO, DALLAS K Ot V27.0 01/01/2014 ANANDA EARTH MOVER, SADIE A V24.2 F/U, ROUTINE 01/01/2014 ANANDA EARTH MOVER SADIE A V25.01 CONTRACEPTION - ORAL CONTRACEPTION 01/01/2014 ANANDA EARTH MOVER SADIE A V74.5 STD SCREEN 08/16/2014 ANANDA, SADIE A EARTH MOVER Ot V28.81 08/16/2014 ANANDA, SADIE A EARTH MOVER Ot V74.5 08/16/2014 ANANDA, SADIE A EARTH MOVER Ot V76.2 08/16/2014 SAEED DO, DALLAS K Ot V28.81 08/16/2014 SAEED DO, DALLAS K Ot 655.83 08/16/2014 SAEED DO, DALLAS K Ot V28.81 08/21/2014 ANANDA, SADIE A EARTH MOVER Ot V28.81 08/21/2014 ANANDA, SADIE A EARTH MOVER Ot V74.5 08/21/2014 ANANDA, SADIE A EARTH MOVER Ot V76.2 08/21/2014 SAEED DO, DALLAS K Ot V28.81 08/21/2014 SAEED DO, DALLAS K Ot 655.83 08/21/2014 SAEED DO, DALLAS K Ot V28.81 08/21/2014 ANANDA, SADIE A EARTH MOVER Ot V28.81 08/21/2014 ANANDA, SADIE A EARTH MOVER Ot V74.5 08/21/2014 ANANDA, SADIE A EARTH MOVER Ot V76.2 08/21/2014 SAEED DO, DALLAS K Ot V28.81 08/21/2014 SAEED DO, DALLAS K Ot 655.83 08/21/2014 SAEED DO, DALLAS K Ot V28.81 09/18/2014 ANANDA, SADIE A EARTH MOVER Ot V28.81 09/18/2014 ANANDA, SADIE A EARTH MOVER Ot V74.5 09/18/2014 ANANDA, SADIE A EARTH MOVER Ot V76.2 09/18/2014 SAEED DO, DALLAS K Ot V28.81 09/18/2014 SAEED DO, DALLAS K Ot 655.83 09/18/2014 SAEED DO, DALLAS K Ot V28.81 09/18/2014 ANANDA, SADIE A EARTH MOVER Ot V22.1 09/20/2014 ANANDA, SADIE A EARTH MOVER Ot V22.1 09/20/2014 ANANDA, SADIE A EARTH MOVER Ot V22.1 10/04/2014 ANANDA, SADIE A EARTH MOVER Ot V22.1 11/08/2014 ANANDA, SADIE A EARTH MOVER Ot V22.1 11/19/2014 ANANDA, SADIE A EARTH MOVER Ot V22.1 02/01/2015 ANANDA, SADIE A EARTH MOVER Ot V28.81 02/01/2015 ANANDA, SADIE A EARTH MOVER Ot V74.5 02/01/2015 ANANDA, SADIE A EARTH MOVER Ot V76.2 02/01/2015 SAEED DO, DALLAS K Ot V28.81 02/01/2015 SAEED DO, DALLAS K Ot 655.83 02/01/2015 SAEED DO, DALLAS K Ot V28.81 02/01/2015 ANANDA, SADIE A EARTH MOVER Ot V22.1 02/01/2015 ANANDA, SADIE A EARTH MOVER Ot V22.1 02/02/2015 SAEED DO, DALLAS K Ot O72.2 02/02/2015 SAEED DO, DALLAS K Ot O99.824 02/02/2015 SAEED DO, DALLAS K Ot Z23 02/02/2015 SAEED DO, DALLAS K Ot Z37.0 02/02/2015 SAEED DO, DALLAS K Ot Z3A.39 02/07/2015 ANANDA, SADIE A EARTH MOVER Ot V28.81 02/07/2015 SADIE MALAVE EARTH MOVER Ot V74.5 02/07/2015 ELIZA MALAVEIDI Karen EARTH MOVER Ot V76.2 02/07/2015 SAEED EASTON VICTORA K Ot V28.81 02/07/2015 SAEED DOEASTONA K Ot 655.83 02/07/2015 SAEED DO, DALLAS K Ot V28.81 02/07/2015 SADIE MALAVE EARTH MOVER Ot V22.1 02/07/2015 ANANDAELIZASADIE Karen EARTH MOVER Ot V22.1 04/09/2015 ANANDAELIZASADIE A EARTH MOVER Ot V28.81 04/09/2015 ELIZA MALAVEIDI Karen EARTH MOVER Ot V74.5 04/09/2015 ELIZA MALAVEIDI Karen EARTH MOVER Ot V76.2 04/09/2015 SAEED DO, DALLAS K Ot V28.81 04/09/2015 SAEED DO, DALLAS K Ot 655.83 04/09/2015 SAEED DO, DALLAS K Ot V28.81 04/09/2015 SADIE MALAVE EARTH MOVER Ot V22.1 04/09/2015 SADIE MALAVE EARTH MOVER Ot V22.1 Procedures Code Description [place] [address] TEST, URINE (IN- HOUSE) 04/25/2013 56931 ROUTINE VENIPUNCTURE 04/26/2013 58693 SYPHILLIS-[facility] 04/26/2013 57376 HIV ([facility]) 04/26/2013 29928 ANTIBODY SCREEN (order) 04/26/2013 12487 HEP B SURFACE ANTIGEN ([facility] ) 04/26/2013 77971 CBC 04/26/2013 08907 TSH 04/26/2013 25944 BLOOD TYPE/Rh FACTOR 04/27/2013 9892284 ANTIBODY SCREEN (RESULT ONLY) 04/27/2013 89047 RUBELLA ANTIBODY, IGG 04/27/2013 31586 CULTURE URINE 04/27/2013 80684 US OB - EARLY <14 WEEKS 05/25/2013 06832 GC/CHLAM PROBE ([facility]) 05/25/2013 67175 PAP SMEAR 05/25/2013 Q0091 PAP SMEAR OBTAIN SMEAR 05/25/2013 11678 UA OB DIP 05/25/2013 00057 TRICHOMONAS (IN-HOUSE) 05/25/2013 91531 CULTURE UROGENITAL 05/28/2013 47800 US OB - COMPLETE >14 WEEKS 06/08/2013 92487 UA W/ CULTURE IF INDICATED 06/26/2013 38562 CULTURE URINE 06/27/2013 91806 US OB - COMPLETE >14 WEEKS 07/24/2013 04005 US OB - FOLLOW UP 07/24/2013 18391 CULTURE CHLAMYDIA (OR CURE) 07/24/2013 95829 CULTURE UROGENITAL 07/27/2013 [id number] CANCELLED TEST 07/28/2013 [id number] AFTERHOURS CALL RESULTS 07/28/2013 20958 ROUTINE VENIPUNCTURE 08/21/2013 11841 UA OB DIP 08/21/2013 74056 GLUCOSE MARLY 1 HOUR 08/21/2013 98283 CBC 08/21/2013 93463 OB - FOLLOW UP 09/13/2013 11365 UA OB DIP 09/13/2013 05531 UA OB DIP 09/27/2013 61367 UA OB DIP 10/09/2013 63433 UA OB DIP 10/25/2013 27894 CULTURE GROUP B STREP VAG 10/27/2013 85637 CULTURE CHLAMYDIA (OR CURE) 10/31/2013 27602 UA OB DIP 11/01/2013 09302 UA OB DIP 11/08/2013 92867 UA OB DIP 11/13/2013 90132 GC/CHLAM URINE (STATE) 01/01/2014 21668 TEST, URINE (IN- HOUSE) 01/01/2014 Results Test Result Range Genital Culture, Routine - 05/19/16 15:08 Genital Culture, Routine Note Pap Lb, rfx HPV ASCU - 05/19/16 15:08 DIAGNOSIS: Comment Specimen adequacy: Comment Clinician provided ICD10: Comment Performed by: Comment . . Note: Comment . Comment CBC With Differential/Platelet - 09/29/16 09:45 WBC 7.1 x10E3/uL 3.4-10.8 RBC 4.17 x10E6/uL 3.77-5.28 Hemoglobin 12.6 g/dL 11.1-15.9 Hematocrit 38.2 % 34.0-46.6 MCV 92 fL 79-97 MCH 30.2 pg 26.6-33.0 MCHC 33.0 g/dL 31.5-35.7 RDW 13.2 % 12.3-15.4 Platelets 308 x10E3/uL 150-379 Neutrophils 50 % Lymphs 41 % Monocytes 7 % Eos 1 % Basos 1 % Neutrophils (Absolute) 3.6 x10E3/uL 1.4-7.0 Lymphs (Absolute) 2.9 x10E3/uL 0.7-3.1 Monocytes(Absolute) 0.5 x10E3/uL 0.1-0.9 Eos (Absolute) 0.1 x10E3/uL 0.0-0.4 Baso (Absolute) 0.0 x10E3/uL 0.0-0.2 Immature Granulocytes 0 % Immature Grans (Abs) 0.0 x10E3/uL 0.0-0.1 Comp. Metabolic Panel (14) - 09/29/16 09:45 Glucose, Serum 79 mg/dL 65-99 BUN 9 mg/dL 6-20 Creatinine, Serum 0.55 mg/dL 0.57-1.00 eGFR If NonAfricn Am 128 mL/min/1.73 >59 eGFR If Africn Am 148 mL/min/1.73 >59 BUN/Creatinine Ratio 16 9-23 Sodium, Serum 140 mmol/L 134-144 Potassium, Serum 4.0 mmol/L 3.5-5.2 Chloride, Serum 102 mmol/L 96-106 Carbon Dioxide, Total 22 mmol/L 18-29 Calcium, Serum 9.0 mg/dL 8.7-10.2 Protein, Total, Serum 6.4 g/dL 6.0-8.5 Albumin, Serum 3.9 g/dL 3.5-5.5 Globulin, Total 2.5 g/dL 1.5-4.5 A/G Ratio 1.6 1.2-2.2 Bilirubin, Total 0.6 mg/dL 0.0-1.2 Alkaline Phosphatase, S 72 IU/L 39-117 AST (SGOT) 20 IU/L 0-40 ALT (SGPT) 17 IU/L 0-32 Lipid Panel - 09/29/16 09:45 Cholesterol, Total 126 mg/dL 100-199 Triglycerides 141 mg/dL 0-149 HDL Cholesterol 36 mg/dL >39 VLDL Cholesterol Javier 28 mg/dL 5-40 LDL Cholesterol Calc 62 mg/dL 0-99 TSH - 09/29/16 09:45 TSH 1.880 uIU/mL 0.450-4.500 HCG, QUANTITATIVE - 12/20/17 17:03 [place], [place] [address] mIU/mL NRG CULTURE, URINE - 12/20/17 17:03 CULTURE, URINE, ROUTINE SEE NOTE NRG Encounters ACCT No. Visit Date/Time Discharge Status Pt. Type Provider Facility Loc./Unit Complaint [id number] 01/01/2014 10:10:00 01/01/2014 23:59:59 CLS Outpatient SADIE MALAVE APRN [id number] 11/13/2013 16:13:00 11/13/2013 23:59:59 CLS Outpatient SAEED DODALLAS [id number] 11/08/2013 10:51:00 11/08/2013 23:59:59 CLS Outpatient SAEED DODALLAS [id number] 11/01/2013 09:53:00 11/01/2013 23:59:59 CLS Outpatient SAEED DODALLAS [id number] 10/09/2013 11:23:00 10/09/2013 23:59:59 CLS Outpatient [place] SAEED DO Kelsie [id number] 09/27/2013 10:49:00 09/27/2013 23:59:59 CLS Outpatient SAEED DODALLAS [id number] 09/13/2013 10:28:00 09/13/2013 23:59:59 CLS Outpatient SAEED DODALLAS Kelsie [id number] 08/21/2013 10:32:00 08/21/2013 23:59:59 CLS Outpatient SAEED DODALLAS [id number] 07/24/2013 11:35:00 07/24/2013 23:59:59 CLS Outpatient [place] SAEED DO Kelsie [id number] 06/26/2013 10:51:00 06/26/2013 23:59:59 CLS Outpatient SAEED DODALLAS Kelsie [id number] 06/06/2013 13:37:00 06/06/2013 23:59:59 CLS Outpatient JERONIMO PEARCE APRN [id number] 06/05/2013 08:57:00 06/05/2013 23:59:59 CLS Outpatient MORALES CINTRON DDS [id number] 05/25/2013 11:34:00 05/25/2013 23:59:59 CLS Outpatient SADIE MALAVE APRN [id number] 04/26/2013 11:31:00 04/26/2013 23:59:59 CLS Outpatient SADIE MALAVE APRN [id number] 04/20/2013 12:46:00 04/20/2013 23:59:59 CLS Outpatient DALLAS SAEED DO [id number] 01/31/2015 15:21:00 02/02/2015 11:45:00 DIS Inpatient [place] SAEED DO [facility] LDRP [id number] 09/18/2014 10:10:00 09/18/2014 23:59:59 CLS Outpatient SADIE MALAVE A EARTH MOVER [facility] RAD [id number] 08/21/2014 10:40:00 08/21/2014 23:59:59 CLS Outpatient ELIZA MALAVEIDI A EARTH MOVER [facility] RAD [id number] 11/17/2013 03:59:00 11/19/2013 11:10:00 DIS Inpatient [place] SAEED DO [facility] LD [id number] 09/20/2013 13:21:00 09/20/2013 23:59:59 CLS Outpatient [place] SAEED DO [facility] RAD [id number] 08/01/2013 10:36:00 08/01/2013 23:59:59 CLS Outpatient [place] SAEED DO [facility] RAD [id number] 06/08/2013 09:33:00 06/08/2013 23:59:59 CLS Outpatient SADIE MALAVE APRN [facility] RAD [id number] 12/25/2017 14:13:00 ACT Emergency JUSTIN BLACK, JOS Jimenez [facility] ER MISCARRIAGE,PAIN [id number] 05/22/2016 08:38:00 Document Registration [id number] 05/21/2016 16:08:00 Document Registration [id number] 09/30/2016 08:40:00 Document Registration [id number] 09/03/2017 16:20:00 09/03/2017 23:59:59 CLS Outpatient [facility] [id number] 12/20/2017 15:40:00 Document Registration
--- NOTE | 2017-12-25 15:10 | ED GU-Female ---
General Chief Complaint: -Female Stated Complaint: MISCARRIAGE,PAIN Nursing Triage Note: ARRIVED VIA AMB TO ROOM 07 WITHOUT DIFFICULTY. STATES SHE WAS AT THE DR'S LAST WEEK AND THEY TOLD HER THAT SHE WAS APPX 9 WEEKS GESTATION BUT THE FETUS HAD BEEN FOR 2 WEEKS. HAS AN APPT NEXT WEDNESDAY FOR US. PT STATES SHE IS HAVING LOWER ABD CRAMPING AND BLEEDING BUT PASSED A LARGE CLOT YESTERDAY ET COUPLE WANTS A ULTRASOUND TO KNOW IF THE BABY IS STILL INSIDE. HAS BEEN TAKING TYLENOL FOR THE PAIN. Nursing Sepsis Screen: No Definite Risk Source: patient Exam Limitations: no limitations History of Present Illness Date Seen by Provider: Dec 25, 2017 Time Seen by Provider: 14:50 Initial Comments Patient is a 32-year-old female accompanied by her for reports of a miscarriage. At her 9 week appointment she was told that fetus did not have a heartbeat for approximately 2 weeks. She has an ultrasound appointment next Wednesday but she reports yesterday she started to have lower abdominal and back cramping, heavy vaginal bleeding, passing large clots and tissue and is concerned that she passed the fetus. Today the bleeding has stopped and the cramping pain is controlled with Tylenol. They are here for ultrasound to see if she passed the fetus. They were informed that we do not have ultrasound coverage today. Timing/Duration: changing over time Severity/Quality: cramping Location: other Associated Symptoms: lower back pain Allergies and Home Medications Allergies Coded Allergies: No Known Drug Allergies (Unverified , 11/17/13) Home Medications Cephalexin 500 Mg Capsule, 500 MG PO BID Prescribed by: NIDIA RODNEY on 12/25/17 1613 Patient Home Medication List Home Medication List Reviewed: Yes Review of Systems Review of Systems Constitutional: no symptoms reported, see HPI Genitourinary: see HPI, other (vaginal bleeding ) : Yes Musculoskeletal: see HPI, back pain All Other Systemes Reviewed Negative Unless Noted: Yes Past Dbpgymy-Osojgs-Nagyut Hx Past Med/Social Hx: Reviewed Nursing Past Med/Soc Hx Patient Social History Alcohol Use: Denies Use Recreational Drug Use: No Smoking Status: Never a Smoker Recent Foreign Travel: No Contact w/Someone Who Travel: No Recent Infectious Disease Expo: No Immunizations Up To Date Tetanus Booster (TDap): Unknown PED Vaccines UTD: No Date of Influenza Vaccine: Nov 01, 2014 Past Medical History Surgeries: No Respiratory: No Cardiac: No Neurological: No Reproductive Disorders: No Female Reproductive Disorders: Denies Sexually Transmitted Disease: Yes (Hx: Chlamydia ) HIV/AIDS: No Genitourinary: No Gastrointestinal: No Musculoskeletal: No Endocrine: No HEENT: No Cancer: No Psychosocial: No Integumentary: No Blood Disorders: No Adverse Reaction/Blood Tranf: No Family Medical History Reviewed Nursing Family Hx Patient reports no known family medical history. Physical Exam Vital Signs Capillary Refill : Less Than 3 Seconds Height, Weight, BMI Height: 5'2.00" Weight: 110lbs. oz. 49.450663po; BMI Method:Stated General Appearance: WD/WN, no apparent distress Neck: non-tender, full range of motion, supple, normal inspection Cardiovascular: normal peripheral pulses, regular rate, rhythm, no edema, no gallop, no JVD, no murmur Respiratory: chest non-tender, lungs clear, normal breath sounds, no respiratory distress, no accessory muscle use, respiratory distress Gastrointestinal: normal bowel sounds, non tender, soft, no organomegaly, no pulsatile mass, abnormal bowel sounds Back: normal inspection, no CVA tenderness, no vertebral tenderness Neurologic/Psychiatric: alert, normal mood/affect, oriented x 3 Skin: normal color, warm/dry Progress/Results/Core Measures Suspected Sepsis Recent Fever Within 48 Hours: No Infection Criteria Present: None New/Unexplained Altered Menta: No Sepsis Screen: No Definite Risk SIRS Temperature:98.1 Pulse: 67 Respiratory Rate: 16 Blood Pressure 103 /71 Mean: 82 Results/Orders Lab Results My Orders Vital Signs/I&O Capillary Refill : Less Than 3 Seconds Blood Pressure Mean: 82 Progress Note : Time: 16:00 Progress Note I have seen and evaluated the patient. I have informed her of her laboratory findings. I have ordered outpatient US for Wednesday with results being sent to [facility]. The patient agrees with plan of care. Return precautions were given. Departure Impression Primary Impression: Miscarriage Additional Impression: UTI (urinary tract infection) Disposition: 01 HOME, SELF-CARE Condition: Stable/Unchanged Departure-Patient Inst. Decision time for Depature: 16:05 Referrals: [facility] (PCP) Primary Care Physician DALLAS SAEED DO (Family) Primary Care Physician Patient Instructions: Miscarriage (DC), Urinary Tract Infection, Adult (DC) Add. Discharge Instructions: Take medications as directed. Follow-up with [facility] first thing Wednesday for appointment time. You may return back to the hospital for outpatient ultrasound on Wednesday. Return back to the emergency room for any worsening vaginal bleeding, pain, worsening symptoms, or any other concerns as needed. Continue to use Tylenol as directed by the bottle for pain relief. All discharge instructions reviewed with patient and/or family. Voiced understanding. Scripts Cephalexin (Keflex) 500 Mg Capsule 500 MG PO BID for 7 Days, #14 CAP Prov: NIDIA RODNEY 12/25/17 NIDIA RODNEY Dec 25, 2017 15:10
[2017-12-25 15:17] LABS: BASOPHILS # (AUTO) 0.1 10^3/uL (0.0-0.1); BASOPHILS % (AUTO) 1 % (0-10); EOSINOPHILS # (AUTO) 0.2 10^3/uL (0.0-0.3); EOSINOPHILS % (AUTO) 2 % (0-10); HEMATOCRIT 37 % (35-52); HEMOGLOBIN 12.6 G/DL (11.5-16.0); LYMPHOCYTES # (AUTO) 2.6 X 10^3 (1.0-4.0); LYMPHOCYTES % (AUTO) 28 % (12-44); MEAN CORPUSCULAR HEMOGLOBIN 31 PG (25-34); MEAN CORPUSCULAR HGB CONC 34 G/DL (32-36); MEAN CORPUSCULAR VOLUME 91 FL (80-99); MEAN PLATELET VOLUME 9.7 FL (7.4-10.4); MONOCYTES # (AUTO) 0.7 X 10^3 (0.0-1.0); MONOCYTES % (AUTO) 7 % (0-12); NEUTROPHILS # (AUTO) 5.8 X 10^3 (1.8-7.8); NEUTROPHILS % (AUTO) 63 % (42-75); PLATELET COUNT 276 10^3/uL (130-400); RED BLOOD COUNT 4.07 10^6/uL (4.35-5.85); RED CELL DISTRIBUTION WIDTH 12.8 % (10.0-14.5); WHITE BLOOD COUNT 9.3 10^3/uL (4.3-11.0)
[2017-12-25 15:18] LABS: BILIRUBIN,URINE NEGATIVE (NEGATIVE); CLARITY,URINE VERY CLOUDY; GLUCOSE, URINE (UA) NEGATIVE (NEGATIVE); KETONES,URINE NEGATIVE (NEGATIVE); LEUKOCYTE ESTERASE ,URINE 3+ (NEGATIVE); NITRITE,URINE NEGATIVE (NEGATIVE); PH,URINE 6.5 (5-9); PROTEIN,URINE 2+ (NEGATIVE); UROBILINOGEN,URINE NORMAL (NORMAL)
[2017-12-25 15:39] LABS: ALANINE AMINOTRANSFERASE 12 U/L (0-55); ALBUMIN 4.3 GM/DL (3.2-4.5); ALKALINE PHOSPHATASE 72 U/L (40-136); BILIRUBIN,TOTAL 0.5 MG/DL (0.1-1.0); BUN/CREATININE RATIO 10; CALCIUM 9.4 MG/DL (8.5-10.1); CARBON DIOXIDE 23 MMOL/L (21-32); CHLORIDE 107 MMOL/L (98-107); CREATININE SERUM 0.72 MG/DL (0.60-1.30); GFR ESTIMATED > 60; GLUCOSE 91 MG/DL (70-105); POTASSIUM 3.7 MMOL/L (3.6-5.0); SODIUM 139 MMOL/L (135-145); TOTAL PROTEIN 7.1 GM/DL (6.4-8.2)
[2017-12-25 15:44] LABS: COLOR,URINE OTHER
[2017-12-25 15:45] LABS: BACTERIA,URINE FEW /HPF; RBC,URINE TNTC /HPF; WBC,URINE 25-50 /HPF
[2017-12-25] MEDS ORDERED: CEPH-507 PO (16:13)
[2017-12-25 16:19] VITALS: BP 103/71
== END 2017-12-25 16:19 | disposition home or self-care (01) ==
LOC: EDUNIT# 14:12 → ER 14:13
DX: O03.9 Complete or unspecified spontaneous abortion without complication (principal); O23.41 Unspecified infection of urinary tract in pregnancy, first trimester; Z3A.09 9 weeks gestation of pregnancy; Z86.19 Personal history of other infectious and parasitic diseases
CPT/HCPCS: 36415; 80053; 81000; 84702; 85025; 87088

== ENCOUNTER → 2017-12-27 | Outpatient (CLI) | payer OTHER ==
[~2017-12-27] MED LIST changes: +CEPH-507 PO
--- NOTE | 2017-12-27 16:11 | Diagnostic Imaging Report ---
PROCEDURE: US Non-OB pelvis comp/trans. TECHNIQUE: Multiple real-time grayscale images were obtained of the pelvis in various projections endovaginally. Transabdominal imaging was also performed. INDICATION: Recent miscarriage with heavy bleeding. FINDINGS: The uterus measures 8.9 x 6.6 x 5.0 cm. The endometrium is abnormally thickened at 2.8 cm. There is also some vascularity to the endometrium. No myometrial mass is seen. The left ovary was not well visualized due to bowel gas. The right ovary measures 3.1 x 1.9 x 1.5 cm. There is a probable 14 mm cyst involving the right ovary. No free fluid is seen. IMPRESSION: Heterogeneously thickened endometrium with mild vascularity. This can be seen with retained products of conception. No other significant abnormality is seen. Dictated by: Dictated on workstation # [id number]
== END ==
LOC: RAD 12:56
PROVIDERS: ATTEND Nurse Practitioner
DX: O03.9 Complete or unspecified spontaneous abortion without complication (principal)
CPT/HCPCS: 76830; 76856

== ENCOUNTER 2019-01-14 13:36 | Inpatient (IN) | payer SELFPAY ==
[2019-01-14] VITALS (15 sets, daily range): BP systolic 76–156; BP diastolic 43–103
[~2019-01-14] VITALS: Ht 154.9 cm; Wt 60.6 kg
--- NOTE | 2019-01-14 13:43 | NUR ---
ELAINE BHATT presented to unit from ED, accompanied by Significant Other, with c/o CONTRACTIONS. ELAINE BHATT weighed, gowned, voided, and to bed. EFHM and TOCO applied, VS taken. ELAINE BHATT oriented to bed controls, call light, TV, heat, and A/C controls.
--- NOTE | 2019-01-14 14:06 | NUR ---
Dr. Briones notified of patient's arrival, complaints, and exam. New orders received.
[2019-01-14] MEDS ORDERED: D5 LR IV SOLUTION 1,000 ML IV SCH (14:08)
[2019-01-14] MEDS ORDERED: MINERAL OIL CONCENTRATE 99.9% 15 ML UDC TOP PRN (14:15)
[2019-01-14 14:58] LABS: BASOPHILS % (AUTO) 0 % (0-10); EOSINOPHILS % (AUTO) 0 % (0-10); HEMATOCRIT 37 % (35-52); HEMOGLOBIN 11.9 G/DL (11.5-16.0); LYMPHOCYTES # (AUTO) 1.9 X 10^3 (1.0-4.0); LYMPHOCYTES % (AUTO) 27 % (12-44); MEAN CORPUSCULAR HEMOGLOBIN 28 PG (25-34); MEAN CORPUSCULAR HGB CONC 33 G/DL (32-36); MEAN CORPUSCULAR VOLUME 85 FL (80-99); MEAN PLATELET VOLUME 10.2 FL (7.4-10.4); MONOCYTES # (AUTO) 0.4 X 10^3 (0.0-1.0); MONOCYTES % (AUTO) 6 % (0-12); NEUTROPHILS # (AUTO) 4.6 X 10^3 (1.8-7.8); NEUTROPHILS % (AUTO) 66 % (42-75); PLATELET COUNT 342 10^3/uL (130-400); RED CELL DISTRIBUTION WIDTH 14.9 % (10.0-14.5)
[2019-01-14] MEDS ORDERED: fentaNYL INJECTION 100 MCG/2 ML AMP ONE (15:24)
[2019-01-14] MEDS ORDERED: fentaNYL INJECTION 100 MCG/2 ML AMP IVP PRN (15:30)
--- NOTE | 2019-01-14 15:31 | History & Physical-OB ---
OB - Chief Complaint & HPI Date/Time Date of Admission: Date of Admission: Jan 14, 2019 at 13:37 Date seen by a Provider: Jan 14, 2019 Time Seen by a Provider: 15:30 Chief Complaint/History OB-Reason for Admission/Chief: Onset of Labor Hx : 6 Hx Para: 4 Expected Date of Delivery: Jan 12, 2019 Gestational Age in Weeks: 40 Gestational Age in Days: 2 Allergies and Home Medications Allergies Coded Allergies: No Known Drug Allergies (Unverified , 11/17/13) Home Medications Cephalexin 500 Mg Capsule, 500 MG PO BID Prescribed by: NIDIA RODNEY on 12/25/17 1613 Patient Home Medication List Home Medication List Reviewed: Yes OB - History Hx of Present Care: Yes Ultrasounds: Normal mid trimester US Obstetrical Complications: None Medical Complications: None Obstetrical History Hx Termination: No Hx Multiple Gestation: No Hx Stillbirth: No Hx Complication: No Hx Induced Hypertens: No Hx Maternal Gestational Diabet: No Delivery History Hx Dystocia: No Hx Large For Gestational Age I: No Hx Small for Gestational Age I: No Hx Section: No Hx Vaginal Delivery Post C-Sec: No Hx Blood Disorders: No Adverse Rxn to Tranfusion: No Patient Past Medical History Denies significant PMH Social History/Family History HIV/AIDS: No Sexually Transmitted Disease: Yes (Hx: Chlamydia ) Alcohol Use: Denies Use Recreational Drug Use: No Immunizations Hepatitis A: Yes Hepatitis B: Yes Tetanus Booster (TDap): Unknown Date of Influenza Vaccine: Nov 21, 2018 OB - Admission Exam Physical Exam Vitals: Vital Signs 01/14/19 15:12 Temp 37.0 Pulse 75 Resp 18 Pulse Ox 99 O2 Delivery Room Air HEENT: NCAT Heart: Rhythm Normal Lungs: Clear Abdomen: Gravid Extremities: Normal Reflexes: Normal Cervical Dilatation: 4cm Effacement: 75% Station: -3 Membranes: Intact Heart Rate: 130's Accelerations: Accelerations Present Decelerations: No Decelerations Short Term Variability: Present Shelter Variability: Average (6-25) Contractions on Admission: < 5 Minutes Apart Labs Laboratory Tests Test 01/14/19 14:33 Range/Units White Blood Count 7.0 4.3-11.0 10^3/uL Red Blood Count 4.29 L 4.35-5.85 10^6/uL Hemoglobin 11.9 11.5-16.0 G/DL Hematocrit 37 35-52 % Mean Corpuscular Volume 85 80-99 FL Mean Corpuscular Hemoglobin 28 25-34 PG Mean Corpuscular Hemoglobin Concent 33 32-36 G/DL Red Cell Distribution Width 14.9 H 10.0-14.5 % Platelet Count 342 130-400 10^3/uL Mean Platelet Volume 10.2 7.4-10.4 FL Neutrophils (%) (Auto) 66 42-75 % Lymphocytes (%) (Auto) 27 12-44 % Monocytes (%) (Auto) 6 0-12 % Eosinophils (%) (Auto) 0 0-10 % Basophils (%) (Auto) 0 0-10 % Neutrophils # (Auto) 4.6 1.8-7.8 X 10^3 Lymphocytes # (Auto) 1.9 1.0-4.0 X 10^3 Monocytes # (Auto) 0.4 0.0-1.0 X 10^3 Eosinophils # (Auto) 0.0 0.0-0.3 10^3/uL Basophils # (Auto) 0.0 0.0-0.1 10^3/uL OB - Assessment/Plan/Diagnosis Assessment Assessment: active labor Admission Dx Labor at 40 2/7 wga Admission Status: Inpatient Order (span 2 midnights) Reason for Inpatient Admission: Labor. Plan Plan: Expectant Management Induction Method: LACHO DAVID MD Jan 14, 2019 15:31 POS
[2019-01-14] MEDS ORDERED: OXYTOCIN/NORMAL SALINE 500 ML IV ONE (16:30)
[2019-01-14] MEDS: OXYTOCIN/NORMAL SALINE 500 ML IV SCH ×2 (16:36→18:36)
--- NOTE | 2019-01-14 18:18 | OB Labor & Delivery Record ---
VERO CARY,MED STUDENT 01/14/19 1818: Vag Delivery Note Vag Delivery Note Date of Delivery: 01/14/19 Preoperative Diagnosis: Leonora Scanlon is a (33 /Para 6 / 4,Gestational A ge (wks)40 2/7 days with onset of labor Postoperative Diagnosis: Same Surgeon: Dr. Lacho Anderson MD Project [employer] Assistant Manager: [Vero Cary MS III] Anesthesia: [None] Delivery Type: [Spontaneous Vaginal Delivery] Findings: Viable [female] infant, apgars [8/9], weight [8 pounds 2 ounces] Lacerations: none Intact placenta with 3 vessel cord. No nuchal cord, body cord or shoulder dystocia Estimated Blood Loss: [350] ml Complications: None Condition: Stable Description of Procedure: The patient is a 33 year old female who presented with onset of labor. She was admitted and informed consent was obtained. Her labor course was unremarkable. She progressed to complete dilatation and began to push. She was then set up for delivery. The 's head was delivered atraumatically in the [ROBI] position. The shoulders and remainder of the 's body were then delivered without difficulty. Upon delivery, the head was held below the level of the perineum and the mouth and nares were bulb suctioned. The cord was doubly clamped and cut after a 60 second delay and the was handed off to the pediatric staff. An intact placenta with 3-vessel cord delivered via Taylor and there was found to be minimal bleeding.~ Vigorous fundal massage was performed and the fundus was found to be firm. IV oxytocin was given. Examination of the vagina and perineum revealed no lacerations. Sponge, instrument and needle counts were correct. Mom and baby were both in stable condition in the labor suite. Vitals - Labs Vital Signs - I&O Vital Signs Date Time Temp Pulse Resp B/P (MAP) Pulse Ox O2 Delivery O2 Flow Rate FiO2 01/14/19 16:54 72 18 110/65 (80) Room Air 01/14/19 16:38 36.7 72 18 108/69 (82) Room Air 01/14/19 15:12 37.0 75 18 99 Room Air 01/14/19 13:49 75 18 103/61 (75) Room Air Labs Laboratory Tests 01/14/19 14:33: White Blood Count 7.0, Red Blood Count 4.29L, Hemoglobin 11.9, Hematocrit 37, Mean Corpuscular Volume 85, Mean Corpuscular Hemoglobin 28, Mean Corpuscular Hemoglobin Concent 33, Red Cell Distribution Width 14.9H, Platelet Count 342, Mean Platelet Volume 10.2, Neutrophils (%) (Auto) 66, Lymphocytes (%) (Auto) 27, Monocytes (%) (Auto) 6, Eosinophils (%) (Auto) 0, Basophils (%) (Auto) 0, Neutrophils # (Auto) 4.6, Lymphocytes # (Auto) 1.9, Monocytes # (Auto) 0.4, E osinophils # (Auto) 0.0, Basophils # (Auto) 0.0 LACHO ANDERSON MD 01/14/19 1855: Vag Delivery Note Vag Delivery Note Verification and Attestation of Medical Student E/M Service A medical student performed and documented this service in my presence. I reviewed and verified all information documented by the medical student and made modifications to such information, when appropriate. I personally performed the physical exam and medical decision making.I was present during the total 2nd adn 3rd stages of delivery. Lacho Anderson, Jan 14, 2019,18:54 VERO CARY,MED STUDENT Jan 14, 2019 18:18 LACHO NGO MD Jan 14, 2019 18:55 POS
--- NOTE | 2019-01-14 19:04 | NUR ---
REFER TO LABOR FLOW SHEET.
--- NOTE | 2019-01-14 20:15 | NUR ---
pericare completed. pt assisted to w'c and taken down to room 309. pt ambulated to the bathroom. positive void. pericare completed. pt assisted to bed. family at bedside. pt denies any needs will continue to monitor
[2019-01-14] MEDS ORDERED: OXYTOCIN/NORMAL SALINE 500 ML IV SCH (20:20)
[2019-01-14] MEDS ORDERED: MEASLES,MUMPS,RUBELLA 1 EA INJ SQ ONE (20:30)
[2019-01-14] MEDS ORDERED: BENZOCAINE/MENTHOL (DERMOPLAST) 56 ML CAN TP PRN (20:30)
[2019-01-14] MEDS ORDERED: WITCH HAZEL(TUCKS) 40 EA JAR TOP PRN (20:30)
[2019-01-14] MEDS ORDERED: TETANUS,DIPTH,PERTUSS P/F (BOOSTRIX) 0.5 ML VIAL IM ONE (20:30)
[2019-01-14] MEDS: ACETAMINOPHEN 500 MG TAB (TYLENOL) PO SCH (21:10)
[2019-01-14] MEDS: DOCUSATE SODIUM 100 MG (COLACE) CAP PO SCH (21:10)
[2019-01-14] MEDS ORDERED: CATHETER FLUSH 10 ML SYR IV SCH (22:00)
[2019-01-14] MEDS: IBUPROFEN 600 MG (MOTRIN) TAB PO SCH (23:39)
[2019-01-15 03:23] VITALS: BP 90/54
[2019-01-15 05:40] LABS: BASOPHILS % (AUTO) 0 % (0-10); EOSINOPHILS # (AUTO) 0.1 10^3/uL (0.0-0.3); EOSINOPHILS % (AUTO) 1 % (0-10); HEMATOCRIT 35 % (35-52); HEMOGLOBIN 11.3 G/DL (11.5-16.0); LYMPHOCYTES # (AUTO) 2.5 X 10^3 (1.0-4.0); LYMPHOCYTES % (AUTO) 23 % (12-44); MEAN CORPUSCULAR HEMOGLOBIN 28 PG (25-34); MEAN CORPUSCULAR HGB CONC 33 G/DL (32-36); MEAN CORPUSCULAR VOLUME 85 FL (80-99); MEAN PLATELET VOLUME 10.4 FL (7.4-10.4); MONOCYTES % (AUTO) 9 % (0-12); NEUTROPHILS # (AUTO) 7.4 X 10^3 (1.8-7.8); NEUTROPHILS % (AUTO) 68 % (42-75); PLATELET COUNT 319 10^3/uL (130-400); RED CELL DISTRIBUTION WIDTH 14.9 % (10.0-14.5)
[2019-01-15] MEDS: ACETAMINOPHEN 500 MG TAB (TYLENOL) PO SCH ×2 (06:31→14:28)
[2019-01-15] MEDS: IBUPROFEN 600 MG (MOTRIN) TAB PO SCH ×3 (06:31→18:50)
[2019-01-15 09:14] VITALS: BP 93/59
--- NOTE | 2019-01-15 09:15 | NUR ---
PT RESTING IN BED, S/O AT THE BEDSIDE. VS OBTAINED. INITIAL SHIFT ASSESSMENT COMPLETED; SEE INTERVENTION FOR FURTHER. NO NEEDS OR QUESTIONS VOICED. CALL LIGHT WITHIN REACH. CERTIFICATE PAPER PROVIDED PT WOULD LIKE TO BE DISCHARGED HOME TODAY.
[2019-01-15] MEDS ORDERED: IBUP-844 PO (09:40)
--- NOTE | 2019-01-15 09:41 | Discharge Instructions ---
Discharge Inst-[facility] Reconcile Patient Problems Problems Reviewed?: Yes Depart Medications New, Converted or Re-Newed RX: Transmitted to Pharmacy Follow Up/Instructions Goal/Follow Up: Follow-up with Dr. Hickey in 6 weeks Activity Activity: Activity as Tolerated Driving Instructions: You May Drive NO SMOKING: NO SMOKING Nothing Inside Vagina: No Douching, No [place], No Tampons Diet Discharge Diet: No Restrictions Symptoms to Report to : Fever Over 101 Degrees F, Vaginal Bleeding Increase For Any Problems or Questions: Contact Your Physician Copies To 1: MARIA M HICKEY MD, KATRINA M MD Jan 15, 2019 09:41 POS
--- NOTE | 2019-01-15 09:47 | Discharge Summary ---
Diagnosis/Chief Complaint Date of Admission Jan 14, 2019 at 13:37 Date of Discharge Admission Diagnosis Admission Diagnosis Normal labor at 40 2/7 wga Discharge Diagnosis Normal labor and vaginal delivery at 40 2/7 wga. Discharge Summary-OBS Procedures None. Discharge Physical Examination Allergies: Coded Allergies: No Known Drug Allergies (Unverified , 11/17/13) Vitals & I&Os Intake and Output 01/14/19 23:59 Intake Total 1000 ml Balance 1000 ml Vital Sign - Last 12Hours Date Time Temp Pulse Resp B/P (MAP) Pulse Ox O2 Delivery O2 Flow Rate FiO2 01/15/19 09:14 37.1 84 18 93/59 (70) 97 Room Air General Appearance: Alert, Oriented X3 HEENT: Atraumatic Respiratory: Clear to Auscultation Cardiovascular: Regular Rate Abdominal: Normal Bowel Sounds, Other (fundus firm below umbilicus) Extremities: No Edema Skin: No Rashes Neuro: Normal Gait Psych/Mental Status: Mental Status NL Hospital Course Was the Problem List Reviewed?: Yes Patient came in in labor. We ruptured membranes and she delivered vaginally without complications. course was uneventful. Labs Laboratory Tests 01/14/19 14:33: White Blood Count 7.0, Red Blood Count 4.29L, Hemoglobin 11.9, Hematocrit 37, Mean Corpuscular Volume 85, Mean Corpuscular Hemoglobin 28, Mean Corpuscular Hemoglobin Concent 33, Red Cell Distribution Width 14.9H, Platelet Count 342, Mean Platelet Volume 10.2, Neutrophils (%) (Auto) 66, Lymphocytes (%) (Auto) 27, Monocytes (%) (Auto) 6, Eosinophils (%) (Auto) 0, Basophils (%) (Auto) 0, Neutrophils # (Auto) 4.6, Lymphocytes # (Auto) 1.9, Monocytes # (Auto) 0.4, Eosinophils # (Auto) 0.0, Basophils # (Auto) 0.0 01/15/19 05:05: White Blood Count 11.0, Red Blood Count 4.09L, Hemoglobin 11.3L, Hematocrit 35, Mean Corpuscular Volume 85, Mean Corpuscular Hemoglobin 28, Mean Corpuscular Hemoglobin Concent 33, Red Cell Distribution Width 14.9H, Platelet Count 319, Mean Platelet Volume 10.4, Neutrophils (%) (Auto) 68, Lymphocytes (%) (Auto) 23, Monocytes (%) (Auto) 9, Eosinophils (%) (Auto) 1, Basophils (%) (Auto) 0, Neutrophils # (Auto) 7.4, Lymphocytes # (Auto) 2.5, Monocytes # (Auto) 1.0, Eosinophils # (Auto) 0.1, Basophils # (Auto) 0.0 Discharge Instructions to patient/family Please see electronic discharge instructions given to patient. Discharge Medications Reviewed and agree with Discharge Medication list on patient's Discharge Instruction sheet Clinical Quality Measures DVT/VTE Risk/Contraindication: Risk Factor Score Per Nursin RFS Level Per Nursing on Admit: 1=Low/No VTE PPX Copy Copies To 1: MARIA M HICKEY MD, KATRINA M MD Jan 15, 2019 09:47 POS
[2019-01-15 12:30] VITALS: BP 91/54
[2019-01-15] MEDS: DOCUSATE SODIUM 100 MG (COLACE) CAP PO SCH (12:31)
--- NOTE | 2019-01-15 12:35 | NUR ---
PT IN BED. S/O AND VISITORS AT THE BEDSIDE. VS OBTAINED. MEDS GIVEN PO; SEE EMAR FOR FURTHER. PT DENIES ANY NEEDS AT THIS TIME. SHOWER SET UP. CALL LIGHT WITHIN REACH.
--- NOTE | 2019-01-15 14:30 | NUR ---
PT IN BED, ALONE, FEEDING . SCHEDULED TYLENOL GIVEN PO; SEE EMAR FOR FURTHER. PT DENIES ANY NEEDS AT THIS TIME.
[2019-01-15 17:17] VITALS: BP 95/59
[2019-01-15 20:00] VITALS: BP 95/59
--- NOTE | 2019-01-15 20:07 | NUR ---
Discharge instructions verbalized with pt. pt verbalized understanding. s/o at bedside to translate. Will follow up in office.
--- NOTE | 2019-01-15 20:10 | NUR ---
pt ambulated to pvt car. no distress noted. will follow up in 's office in 6 weeks.
== END 2019-01-15 20:10 | disposition home or self-care (01) | DRG 807 ==
LOC: LDRP 13:36 → WSo 13:36 → LDRP 13:37 → WSo 13:37 → LDRP 20:23
PROVIDERS: ADMIT Family Medicine; ATTEND Family Medicine
PROC: 10E0XZZ Delivery of Products of Conception, External Approach (ICD-10-PCS; principal; 2019-01-14)
DX: O80 Encounter for full-term uncomplicated delivery (principal); Z37.0 Single live birth; Z3A.40 40 weeks gestation of pregnancy
CPT/HCPCS: 36415; 85025; 86850; 86900; 86901; 99212